=== PATIENT | male | born 1970 | race Two or more races ===

== ENCOUNTER 2020-07-08 09:52 | Emergency (ER) | payer MEDICAID ==
[~2020-07-08] VITALS: Ht 193 cm; Wt 272.2 kg
[~2020-07-08 09:52] MED LIST: ASPI81CH43 PO; CLIN300C8 PO; FURO1TAB33 PO; [UNRECOGNIZED DRUG - CODE] PO
[2020-07-08 10:35] LABS: Basophils # (auto) 0.1 10 ^3/uL (0-0.2); Basophils % (auto) 1.4 % (0.0-2.0); Eosinophils # (auto) 0.3 10 ^3/uL (0-0.8); Eosinophils % (auto) 6.3 % (0.0-7.0); Hematocrit 40.1 % (41.0-53.0); Hemoglobin 12.9 g/dL (13.5-17.5); Lymphocytes # (auto) 0.8 10 ^3/uL (0.4-5.4); Lymphocytes % (auto) 16.7 % (10.0-50.0); Mean Corpuscular Hemoglobin 30.9 pg (28.0-32.0); Mean Corpuscular Hgb Conc. 32.1 g/dL (32.0-36.0); Mean Corpuscular Volume 96.1 fL (80.0-100.0); Monocytes # (auto) 0.4 10 ^3/uL (0-1.3); Monocytes % (auto) 7.5 % (0.0-12.0); Neutrophils # (auto) 3.2 10 ^3/uL (1.6-8.6); Neutrophils % (auto) 68.1 % (37.0-80.0); Nucleated Red Blood Cells % 0.1 %; Platelet Count (auto) 197 10^3/uL (140-450); Red Blood Cells 4.17 10^6/uL (4.5-5.90); Red Cell Distribution Width 17.2 % (11.8-14.3); White Blood Cell 4.7 10^3/uL (4.4-10.8)
[2020-07-08 10:59] LABS: Albumin 3.2 g/dL (3.4-5.0); Anion Gap 5 (5-15); Blood Urea Nitrogen 8 mg/dL (7-18); Calcium 7.6 mg/dL (8.5-10.1); Carbon Dioxide 28 mmol/L (21-32); Chloride 107 mmol/L (98-107); Glucose 92 mg/dL (74-106); INR 1.1 (0.9-1.15); Magnesium 2.2 mg/dL (1.6-2.6); Partial Thromboplastin Time 26.2 sec (23.0-31.2); Sodium 140 mmol/L (136-145)
[2020-07-08 11:05] LABS: Alanine Aminotransferase 15 U/L (16-61); Alkaline Phosphatase 70 U/L (45-117); Aspartate Aminotransferase 15 U/L (15-37); BUN/Creatinine Ratio 9.4; Bilirubin, Total 1.2 mg/dL (0.2-1.0); GFR African American 123 mL/min; GFR Non-African American 101 mL/min; Total Protein 7.2 g/dL (6.4-8.2)
[2020-07-08 12:42] VITALS: BP 136/63
== END 2020-07-08 12:54 | disposition home or self-care (01) ==
LOC: EDBD 09:52 → ER 09:52
DX: I11.0 Hypertensive heart disease with heart failure (principal); I50.9 Heart failure, unspecified; M79.89 Other specified soft tissue disorders; I89.0 Lymphedema, not elsewhere classified; F17.210 Nicotine dependence, cigarettes, uncomplicated
CPT/HCPCS: 36415; 71045; 80053; 83735; 83880; 84484; 85025; 85610; 85730; 93005; 93970

== ENCOUNTER 2020-11-24 12:47 | Inpatient (IN) | payer MEDICAID ==
[~2020-11-24] VITALS: Ht 193 cm; Wt 256.8 kg
[2020-11-24] MEDS ORDERED: CEFEPIME 2 GM in SODIUM CHL 0.9% 50 ML IV ONE (17:45)
[2020-11-24 22:20] LABS: Basophils # (auto) 0 10 ^3/uL (0-0.2); Eosinophils # (auto) 0.1 10 ^3/uL (0-0.8); Eosinophils % (auto) 2.8 % (0.0-7.0); Hematocrit 38.8 % (41.0-53.0); Lymphocytes # (auto) 0.5 10 ^3/uL (0.4-5.4); Monocytes # (auto) 0.3 10 ^3/uL (0-1.3); Red Blood Cells 3.71 10^6/uL (4.5-5.90); Red Cell Distribution Width 18.1 % (11.8-14.3); White Blood Cell 3.4 10^3/uL (4.4-10.8)
[2020-11-24 22:22] LABS: Basophils % (auto) 0.9 % (0.0-2.0); Hemoglobin 13.5 g/dL (13.5-17.5); Mean Corpuscular Hemoglobin 36.3 pg (28.0-32.0); Mean Corpuscular Hgb Conc. 34.7 g/dL (32.0-36.0); Mean Corpuscular Volume 104.4 fL (80.0-100.0); Monocytes % (auto) 7.5 % (0.0-12.0); Neutrophils # (auto) 2.5 10 ^3/uL (1.6-8.6); Neutrophils % (auto) 73.8 % (37.0-80.0); Platelet Count (auto) 187 10^3/uL (140-450)
[2020-11-24 22:46] LABS: Albumin 2.9 g/dL (3.4-5.0); Anion Gap 7 (5-15); Blood Urea Nitrogen 9 mg/dL (7-18); Calcium 7.6 mg/dL (8.5-10.1); Carbon Dioxide 28 mmol/L (21-32); Chloride 104 mmol/L (98-107); Glucose 81 mg/dL (74-106); Magnesium 1.9 mg/dL (1.6-2.6); Sodium 139 mmol/L (136-145)
[2020-11-24 22:52] LABS: Alanine Aminotransferase 16 U/L (16-61); Alkaline Phosphatase 77 U/L (45-117); Aspartate Aminotransferase 21 U/L (15-37); BUN/Creatinine Ratio 12.3; Bilirubin, Total 1.4 mg/dL (0.2-1.0); GFR African American 146 mL/min; GFR Non-African American 121 mL/min; Total Protein 8.1 g/dL (6.4-8.2)
[2020-11-25] MEDS ORDERED: NITROGLYCERIN 0.4 MG SL TAB SL PRN (06:00)
[2020-11-25] MEDS ORDERED: MORPHINE SULF INJ 2 MG/ML SYRINGE 1ML IV PRN ×2 (06:00)
[2020-11-25] MEDS ORDERED: VANCOMYCIN PER PHARMACY 0 MG IV SCH (06:00)
[2020-11-25] MEDS ORDERED: VANCOMYCIN 1GM/250ML 250 ML IV ONE (09:00)
[2020-11-25] MEDS: ONDANSETRON HCL 4 MG/2 ML VIAL IV PRN ×2 (09:09→10:24)
[2020-11-25] MEDS: FUROSEMIDE 40 MG/4 ML VIAL IV SCH (10:24)
[2020-11-25] MEDS: PIPERACILLIN-TAZOB 3.375GM 100 ML IV SCH ×2 (13:00→17:41)
[2020-11-25] MEDS: HYDROcodone-ACET 5/325MG TAB PO PRN (17:45)
[2020-11-25] MEDS: Ensure HIGH Protein Chocolate 8oz Bottle PO SCH (19:00)
[2020-11-25] MEDS: MORPHINE SULFATE 4 MG/ML SYR/VIAL IV PRN (20:37)
[2020-11-25] MEDS: CLINDAMYCIN 600MG IV 50 ML IV SCH (21:34)
[2020-11-26] MEDS: PIPERACILLIN-TAZOB 3.375GM 100 ML IV SCH ×4 (00:02→18:07)
[2020-11-26] MEDS: HYDROcodone-ACET 5/325MG TAB PO PRN (00:18)
[2020-11-26 05:06] LABS: Urine Bacteria FEW /hpf (None Seen); Urine Blood Negative /uL (Negative); Urine Mucus FEW (None Seen); Urine WBC 6 /hpf (0 - 3)
[2020-11-26 05:30] VITALS: BP 115/65
[2020-11-26 05:53] LABS: Eosinophils # (auto) 0.2 10 ^3/uL (0-0.8); Eosinophils % (auto) 2.9 % (0.0-7.0); Lymphocytes # (auto) 0.6 10 ^3/uL (0.4-5.4); Lymphocytes % (auto) 10.9 % (10.0-50.0); Monocytes # (auto) 0.4 10 ^3/uL (0-1.3); Neutrophils # (auto) 4.2 10 ^3/uL (1.6-8.6)
[2020-11-26 05:58] LABS: Basophils # (auto) 0 10 ^3/uL (0-0.2); Basophils % (auto) 0.7 % (0.0-2.0); Hematocrit 35.3 % (41.0-53.0); Mean Corpuscular Hemoglobin 35.4 pg (28.0-32.0); Mean Corpuscular Volume 104.1 fL (80.0-100.0); Monocytes % (auto) 6.8 % (0.0-12.0); Neutrophils % (auto) 78.7 % (37.0-80.0); Platelet Count (auto) 194 10^3/uL (140-450); Red Blood Cells 3.39 10^6/uL (4.5-5.90); Red Cell Distribution Width 18.2 % (11.8-14.3); White Blood Cell 5.3 10^3/uL (4.4-10.8)
[2020-11-26 06:14] LABS: Calcium 7.7 mg/dL (8.5-10.1); Chloride 103 mmol/L (98-107); Potassium 3.9 mmol/L (3.5-5.1); Sodium 137 mmol/L (136-145)
[2020-11-26 06:24] LABS: Alanine Aminotransferase 14 U/L (16-61); Albumin 2.6 g/dL (3.4-5.0); Alkaline Phosphatase 60 U/L (45-117); Anion Gap 6 (5-15); Aspartate Aminotransferase 18 U/L (15-37); BUN/Creatinine Ratio 15.8; Bilirubin, Total 1.3 mg/dL (0.2-1.0); Blood Urea Nitrogen 12 mg/dL (7-18); CRP High Sensitivity 2.63 mg/dL (< 0.3); Carbon Dioxide 28 mmol/L (21-32); GFR African American 140 mL/min; GFR Non-African American 115 mL/min; Glucose 96 mg/dL (74-106); Total Protein 7.2 g/dL (6.4-8.2)
[2020-11-26] MEDS: CLINDAMYCIN 600MG IV 50 ML IV SCH ×2 (06:30→14:19)
[2020-11-26] MEDS: MORPHINE SULFATE 4 MG/ML SYR/VIAL IV PRN ×3 (06:40→12:09)
[2020-11-26] MEDS: Ensure HIGH Protein Chocolate 8oz Bottle PO SCH ×3 (08:00→18:00)
[2020-11-26] MEDS: FUROSEMIDE 40 MG/4 ML VIAL IV SCH ×2 (10:13→22:31)
[2020-11-26] MEDS ORDERED: CARVEDILOL 3.125 MG TAB PO ONE (11:30)
[2020-11-26] MEDS: ONDANSETRON HCL 4 MG/2 ML VIAL IV PRN (12:09)
[2020-11-26] MEDS ORDERED: OPTISON 3ml Vial for INJ IV ONE (13:04)
[2020-11-26] MEDS ORDERED: GABAPENTIN 300 MG CAP ONE (15:48)
[2020-11-26] MEDS ORDERED: GABAPENTIN 300 MG CAP PO ONE (16:00)
[2020-11-26] MEDS ORDERED: VANCOMYCIN PER PHARMACY 0 MG IV SCH (18:00)
[2020-11-26] MEDS: VANCOMYCIN 1GM/250ML 250 ML IV SCH ×2 (18:56→22:33)
[2020-11-26] MEDS ORDERED: VANCOMYCIN 1GM/250ML 250 ML IV SCH (19:00)
[2020-11-26 19:03] LABS: Cholesterol 85 mg/dL (< 200); HDL Cholesterol 29 mg/dL (40-59); LDL Cholesterol 51 mg/dL (< 100); Triglycerides 63 mg/dL (< 150)
[2020-11-26] MEDS: GABAPENTIN 300 MG CAP PO SCH ×2 (21:08→22:32)
[2020-11-26] MEDS ORDERED: GABAPENTIN 100 MG CAP PO SCH (22:00)
[2020-11-26] MEDS: FAMOTIDINE 20 MG TAB PO SCH (22:00)
[2020-11-26] MEDS: CARVEDILOL 3.125 MG TAB PO SCH (22:31)
[2020-11-26] MEDS: ATORVASTATIN 20 MG TAB PO SCH (22:32)
[2020-11-27] VITALS (7 sets, daily range): BP systolic 97–136; BP diastolic 57–76
[2020-11-27] MEDS: HYDROcodone-ACET 5/325MG TAB PO PRN ×3 (01:08→20:19)
[2020-11-27] MEDS ORDERED: INFLUENZA QUAD 2020-2021 0.5 ML SYRG IM ONE (03:00)
[2020-11-27] MEDS: ACETAMINOPHEN 325 MG TAB PO PRN ×2 (03:51→20:12)
[2020-11-27] MEDS: GABAPENTIN 300 MG CAP PO SCH ×6 (05:45→21:40)
[2020-11-27] MEDS: LEVOTHYROXINE SODIUM 112 MCG TAB PO SCH (06:33)
[2020-11-27] MEDS ORDERED: VANCOMYCIN 1GM/250ML 250 ML IV SCH (07:00)
[2020-11-27] MEDS: Ensure HIGH Protein Chocolate 8oz Bottle PO SCH ×3 (08:00→18:01)
[2020-11-27 09:42] LABS: Hematocrit 35.5 % (41.0-53.0); Hemoglobin 12.1 g/dL (13.5-17.5); Mean Corpuscular Hemoglobin 35.5 pg (28.0-32.0); Neutrophils # (auto) 4.1 10 ^3/uL (1.6-8.6); Nucleated Red Blood Cells % 0.1 %
[2020-11-27 09:46] LABS: Basophils # (auto) 0.1 10 ^3/uL (0-0.2); Basophils % (auto) 1.2 % (0.0-2.0); Eosinophils # (auto) 0.2 10 ^3/uL (0-0.8); Eosinophils % (auto) 4.4 % (0.0-7.0); Lymphocytes # (auto) 0.7 10 ^3/uL (0.4-5.4); Lymphocytes % (auto) 12.6 % (10.0-50.0); Mean Corpuscular Hgb Conc. 34.1 g/dL (32.0-36.0); Mean Corpuscular Volume 104.4 fL (80.0-100.0); Monocytes # (auto) 0.5 10 ^3/uL (0-1.3); Monocytes % (auto) 8.6 % (0.0-12.0); Neutrophils % (auto) 73.2 % (37.0-80.0); Platelet Count (auto) 202 10^3/uL (140-450); Red Cell Distribution Width 18.6 % (11.8-14.3); White Blood Cell 5.6 10^3/uL (4.4-10.8)
[2020-11-27] MEDS: ASPirin 81 mg TAB PO SCH (10:15)
[2020-11-27] MEDS: FAMOTIDINE 20 MG TAB PO SCH ×2 (10:16→21:41)
[2020-11-27] MEDS: LISINOPRIL 5 MG TAB PO SCH (10:17)
[2020-11-27] MEDS: POTASSIUM CHL 20 Meq TABLET PO SCH (10:17)
[2020-11-27] MEDS: CARVEDILOL 3.125 MG TAB PO SCH ×2 (10:17→21:40)
[2020-11-27] MEDS: FUROSEMIDE 40 MG/4 ML VIAL IV SCH ×2 (10:18→18:23)
[2020-11-27 11:04] LABS: Albumin 2.8 g/dL (3.4-5.0); Calcium 7.9 mg/dL (8.5-10.1); Potassium 3.9 mmol/L (3.5-5.1)
[2020-11-27 11:06] LABS: BUN/Creatinine Ratio 15.2
[2020-11-27] MEDS: PIPERACILLIN-TAZOB 3.375GM 100 ML IV SCH ×3 (12:52→18:01)
[2020-11-27] MEDS: VANCOMYCIN 1GM/250ML 250 ML IV SCH ×2 (15:32→23:21)
[2020-11-27] MEDS ORDERED: CIPROFLOXACIN 0.3%OPTH(EYE) SOL 5ML EACHEYE ONE (16:30)
[2020-11-27] MEDS: CIPROFLOXACIN 0.3%OPTH(EYE) SOL 5ML EACHEYE SCH ×3 (18:23→22:25)
[2020-11-27] MEDS: ATORVASTATIN 20 MG TAB PO SCH (21:40)
[2020-11-27] MEDS: ENOXAPARIN SOD 40 MG/0.4 ML SYRINGE SC SCH (21:41)
[2020-11-27] MEDS: NEOMYCIN-POLYMY-DEXAMETH 0.1% OPTH(EYE) OINT 3.5GM EACHEYE SCH (22:00)
[2020-11-28] MEDS: PIPERACILLIN-TAZOB 3.375GM 100 ML IV SCH ×4 (00:23→18:12)
[2020-11-28] MEDS: CIPROFLOXACIN 0.3%OPTH(EYE) SOL 5ML EACHEYE SCH ×12 (00:23→22:01)
[2020-11-28] MEDS: MORPHINE SULFATE 4 MG/ML SYR/VIAL IV PRN ×2 (00:24→21:13)
[2020-11-28] MEDS: GABAPENTIN 300 MG CAP PO SCH ×8 (00:46→23:30)
[2020-11-28] MEDS: ACETAMINOPHEN 325 MG TAB PO PRN ×4 (04:31→23:30)
[2020-11-28 05:30] VITALS: BP 101/72
[2020-11-28] MEDS: FUROSEMIDE 40 MG/4 ML VIAL IV SCH ×2 (05:36→18:19)
[2020-11-28] MEDS: LEVOTHYROXINE SODIUM 112 MCG TAB PO SCH (06:57)
[2020-11-28] MEDS: VANCOMYCIN 1GM/250ML 250 ML IV SCH ×3 (06:57→22:57)
[2020-11-28 07:53] LABS: Potassium 3.8 mmol/L (3.5-5.1)
[2020-11-28 07:54] LABS: Basophils # (auto) 0.1 10 ^3/uL (0-0.2); Basophils % (auto) 1.3 % (0.0-2.0); Eosinophils # (auto) 0.2 10 ^3/uL (0-0.8); Mean Corpuscular Volume 104.2 fL (80.0-100.0); Monocytes # (auto) 0.4 10 ^3/uL (0-1.3); Nucleated Red Blood Cells % 0.2 %; Red Cell Distribution Width 18.1 % (11.8-14.3)
[2020-11-28 07:57] LABS: Eosinophils % (auto) 5.7 % (0.0-7.0); Hematocrit 35.6 % (41.0-53.0); Lymphocytes % (auto) 22.3 % (10.0-50.0); Mean Corpuscular Hemoglobin 35.1 pg (28.0-32.0); Mean Corpuscular Hgb Conc. 33.7 g/dL (32.0-36.0); Monocytes % (auto) 10.1 % (0.0-12.0); Neutrophils # (auto) 2.6 10 ^3/uL (1.6-8.6); Neutrophils % (auto) 60.6 % (37.0-80.0); Platelet Count (auto) 211 10^3/uL (140-450); Red Blood Cells 3.42 10^6/uL (4.5-5.90); White Blood Cell 4.3 10^3/uL (4.4-10.8)
[2020-11-28 08:15] LABS: Albumin 2.7 g/dL (3.4-5.0); Calcium 8.2 mg/dL (8.5-10.1); Phosphorus 4.2 mg/dL (2.5-4.90)
[2020-11-28] MEDS: Ensure HIGH Protein Chocolate 8oz Bottle PO SCH ×3 (08:28→18:12)
[2020-11-28 08:30] VITALS: BP 111/59
[2020-11-28 09:00] VITALS: BP 111/59
[2020-11-28] MEDS: POTASSIUM CHL 20 Meq TABLET PO SCH (10:26)
[2020-11-28] MEDS: CARVEDILOL 3.125 MG TAB PO SCH ×2 (10:27→22:01)
[2020-11-28] MEDS: FAMOTIDINE 20 MG TAB PO SCH ×2 (10:27→21:11)
[2020-11-28] MEDS: ASPirin 81 mg TAB PO SCH (10:27)
[2020-11-28] MEDS: LISINOPRIL 5 MG TAB PO SCH (10:28)
[2020-11-28] MEDS: ENOXAPARIN SOD 40 MG/0.4 ML SYRINGE SC SCH ×2 (10:28→21:12)
[2020-11-28] MEDS: HYDROcodone-ACET 5/325MG TAB PO PRN (10:48)
[2020-11-28 13:00] VITALS: BP 107/59
[2020-11-28 17:00] VITALS: BP 111/66
[2020-11-28] MEDS: ATORVASTATIN 20 MG TAB PO SCH (21:11)
[2020-11-28] MEDS: NEOMYCIN-POLYMY-DEXAMETH 0.1% OPTH(EYE) OINT 3.5GM EACHEYE SCH (21:12)
[2020-11-29] MEDS: CIPROFLOXACIN 0.3%OPTH(EYE) SOL 5ML EACHEYE SCH ×8 (00:04→21:44)
[2020-11-29] MEDS: PIPERACILLIN-TAZOB 3.375GM 100 ML IV SCH ×4 (00:05→18:35)
[2020-11-29] MEDS: MORPHINE SULFATE 4 MG/ML SYR/VIAL IV PRN ×5 (01:28→20:29)
[2020-11-29 01:51] VITALS: BP 114/69
[2020-11-29] MEDS: GABAPENTIN 300 MG CAP PO SCH ×4 (05:20→18:35)
[2020-11-29] MEDS: FUROSEMIDE 40 MG/4 ML VIAL IV SCH ×2 (05:32→18:35)
[2020-11-29 06:02] VITALS: BP 135/75
[2020-11-29 06:06] VITALS: BP 115/69
[2020-11-29] MEDS: LEVOTHYROXINE SODIUM 112 MCG TAB PO SCH (06:42)
[2020-11-29] MEDS: VANCOMYCIN 1GM/250ML 250 ML IV SCH ×3 (07:02→23:00)
[2020-11-29] MEDS: Ensure HIGH Protein Chocolate 8oz Bottle PO SCH ×3 (08:00→18:35)
[2020-11-29 09:00] VITALS: BP 122/77
[2020-11-29] MEDS: ASPirin 81 mg TAB PO SCH (09:22)
[2020-11-29] MEDS: POTASSIUM CHL 20 Meq TABLET PO SCH (09:22)
[2020-11-29] MEDS: LISINOPRIL 5 MG TAB PO SCH (09:24)
[2020-11-29] MEDS: FAMOTIDINE 20 MG TAB PO SCH ×2 (09:24→21:57)
[2020-11-29] MEDS: CARVEDILOL 3.125 MG TAB PO SCH ×2 (09:24→21:56)
[2020-11-29] MEDS: ENOXAPARIN SOD 40 MG/0.4 ML SYRINGE SC SCH ×2 (09:25→21:57)
[2020-11-29 16:00] VITALS: BP 127/72
[2020-11-29] MEDS: NEOMYCIN-POLYMY-DEXAMETH 0.1% OPTH(EYE) OINT 3.5GM EACHEYE SCH (21:52)
[2020-11-29] MEDS: ATORVASTATIN 20 MG TAB PO SCH (21:56)
[2020-11-30] VITALS: BP 120/67
[2020-11-30] MEDS: MORPHINE SULFATE 4 MG/ML SYR/VIAL IV PRN ×4 (00:21→20:34)
[2020-11-30] MEDS: GABAPENTIN 300 MG CAP PO SCH ×4 (00:28→18:16)
[2020-11-30] MEDS: PIPERACILLIN-TAZOB 3.375GM 100 ML IV SCH ×4 (00:28→18:15)
[2020-11-30] MEDS: CIPROFLOXACIN 0.3%OPTH(EYE) SOL 5ML EACHEYE SCH ×6 (02:05→22:02)
[2020-11-30 05:00] VITALS: BP 131/65
[2020-11-30] MEDS: FUROSEMIDE 40 MG/4 ML VIAL IV SCH ×2 (06:09→18:16)
[2020-11-30] MEDS: LEVOTHYROXINE SODIUM 112 MCG TAB PO SCH (06:13)
[2020-11-30] MEDS: VANCOMYCIN 1GM/250ML 250 ML IV SCH ×3 (06:14→22:14)
[2020-11-30 08:00] VITALS: BP 108/73
[2020-11-30] MEDS: Ensure HIGH Protein Chocolate 8oz Bottle PO SCH ×3 (08:00→18:16)
[2020-11-30] MEDS: POTASSIUM CHL 20 Meq TABLET PO SCH (10:00)
[2020-11-30] MEDS: ENOXAPARIN SOD 40 MG/0.4 ML SYRINGE SC SCH ×2 (10:00→22:13)
[2020-11-30] MEDS: FAMOTIDINE 20 MG TAB PO SCH ×2 (10:00→22:15)
[2020-11-30] MEDS: ASPirin 81 mg TAB PO SCH (10:00)
[2020-11-30] MEDS: CARVEDILOL 3.125 MG TAB PO SCH ×2 (10:00→22:11)
[2020-11-30] MEDS: ACETAMINOPHEN 325 MG TAB PO PRN (15:46)
[2020-11-30 16:19] VITALS: BP 131/84
[2020-11-30] MEDS: LISINOPRIL 5 MG TAB PO SCH (16:42)
[2020-11-30 21:40] VITALS: BP 127/60
[2020-11-30] MEDS: NEOMYCIN-POLYMY-DEXAMETH 0.1% OPTH(EYE) OINT 3.5GM EACHEYE SCH (22:00)
[2020-11-30] MEDS: ATORVASTATIN 20 MG TAB PO SCH (22:12)
[2020-11-30] MEDS: HYDROcodone-ACET 5/325MG TAB PO PRN (22:30)
[2020-12-01] MEDS: PIPERACILLIN-TAZOB 3.375GM 100 ML IV SCH ×5 (00:30→23:03)
[2020-12-01] MEDS: GABAPENTIN 300 MG CAP PO SCH ×5 (00:31→23:03)
[2020-12-01] MEDS: MORPHINE SULFATE 4 MG/ML SYR/VIAL IV PRN ×5 (00:32→21:35)
[2020-12-01] MEDS: CIPROFLOXACIN 0.3%OPTH(EYE) SOL 5ML EACHEYE SCH ×6 (01:57→21:33)
[2020-12-01 04:57] VITALS: BP 144/76
[2020-12-01] MEDS: FUROSEMIDE 40 MG/4 ML VIAL IV SCH ×2 (05:32→17:32)
[2020-12-01] MEDS: LEVOTHYROXINE SODIUM 112 MCG TAB PO SCH (06:59)
[2020-12-01] MEDS: VANCOMYCIN 1GM/250ML 250 ML IV SCH ×2 (07:49→16:45)
[2020-12-01 08:00] VITALS: BP 117/81
[2020-12-01] MEDS: Ensure HIGH Protein Chocolate 8oz Bottle PO SCH ×3 (08:00→17:32)
[2020-12-01] MEDS: HYDROcodone-ACET 5/325MG TAB PO PRN ×2 (08:39→20:02)
[2020-12-01] MEDS: ASPirin 81 mg TAB PO SCH (11:18)
[2020-12-01] MEDS: ENOXAPARIN SOD 40 MG/0.4 ML SYRINGE SC SCH ×2 (11:18→21:35)
[2020-12-01] MEDS: FAMOTIDINE 20 MG TAB PO SCH ×2 (11:18→21:34)
[2020-12-01] MEDS: CARVEDILOL 3.125 MG TAB PO SCH ×2 (11:19→21:36)
[2020-12-01] MEDS: LISINOPRIL 5 MG TAB PO SCH (11:19)
[2020-12-01] MEDS: POTASSIUM CHL 20 Meq TABLET PO SCH (11:19)
[2020-12-01 16:00] VITALS: BP 125/60
[2020-12-01 16:09] LABS: Potassium 4.4 mmol/L (3.5-5.1)
[2020-12-01 16:44] LABS: BUN/Creatinine Ratio 15.6; Calcium 8.6 mg/dL (8.5-10.1)
[2020-12-01 20:00] VITALS: BP 116/72
[2020-12-01] MEDS: NEOMYCIN-POLYMY-DEXAMETH 0.1% OPTH(EYE) OINT 3.5GM EACHEYE SCH (21:34)
[2020-12-01] MEDS: ATORVASTATIN 20 MG TAB PO SCH (21:34)
[2020-12-01 22:00] VITALS: BP 114/72
[2020-12-02] MEDS: HYDROcodone-ACET 5/325MG TAB PO PRN ×4 (00:07→19:35)
[2020-12-02] MEDS: CIPROFLOXACIN 0.3%OPTH(EYE) SOL 5ML EACHEYE SCH ×6 (01:25→21:30)
[2020-12-02] MEDS: MORPHINE SULFATE 4 MG/ML SYR/VIAL IV PRN ×3 (01:30→21:34)
[2020-12-02] MEDS: VANCOMYCIN 1GM/250ML 250 ML IV SCH ×2 (04:13→17:52)
[2020-12-02] MEDS: GABAPENTIN 300 MG CAP PO SCH ×4 (04:57→23:29)
[2020-12-02] MEDS: PIPERACILLIN-TAZOB 3.375GM 100 ML IV SCH ×4 (04:57→23:29)
[2020-12-02 05:00] VITALS: BP 108/81
[2020-12-02] MEDS: FUROSEMIDE 40 MG/4 ML VIAL IV SCH ×2 (05:27→17:53)
[2020-12-02] MEDS: LEVOTHYROXINE SODIUM 112 MCG TAB PO SCH (05:27)
[2020-12-02] MEDS ORDERED: ceFAZolin 1GM/50ML 100 ML IV ONE (07:17)
[2020-12-02] MEDS ORDERED: ceFAZolin 1GM VL ONE (07:27)
[2020-12-02] MEDS ORDERED: LIDOCAINE 1% (LOCAL ANESTH.) PF 5ml SDV ONE (07:39)
[2020-12-02] MEDS ORDERED: SUCCINYLCHOLINE CHLORIDE 20 MG/ML 10ML VIAL IV ONE (07:39)
[2020-12-02] MEDS ORDERED: METOCLOPRAMIDE HCL 5MG/ml INJ 2ml VIAL ONE (07:51)
[2020-12-02] MEDS ORDERED: MIDAZOLAM HCL 1MG/1ML-2 ML VIAL ONE ×2 (07:51→08:08)
[2020-12-02] MEDS ORDERED: diphenhdrAMINE HCL 50 MG/1 ML VL ONE (07:51)
[2020-12-02] MEDS ORDERED: SILVER SULFADIAZINE 1 % TOPICAL CREAM 50GM TOP ONE (08:17)
[2020-12-02] MEDS ORDERED: HYDROmorphone HCL 2 MG/ML VL IV PRN (08:30)
[2020-12-02] MEDS ORDERED: ONDANSETRON HCL 4 MG/2 ML VIAL IV PRN (08:30)
[2020-12-02] MEDS ORDERED: NALOXONE HCL 0.4 MG/ML VIAL IV PRN (08:30)
[2020-12-02] MEDS: Ensure HIGH Protein Chocolate 8oz Bottle PO SCH ×3 (09:57→18:16)
[2020-12-02] MEDS: CARVEDILOL 3.125 MG TAB PO SCH ×2 (10:00→21:57)
[2020-12-02] MEDS: ASPirin 81 mg TAB PO SCH (10:00)
[2020-12-02] MEDS: POTASSIUM CHL 20 Meq TABLET PO SCH (10:03)
[2020-12-02] MEDS: FAMOTIDINE 20 MG TAB PO SCH ×2 (10:03→21:33)
[2020-12-02] MEDS: LISINOPRIL 5 MG TAB PO SCH (10:04)
[2020-12-02] MEDS: ENOXAPARIN SOD 40 MG/0.4 ML SYRINGE SC SCH ×2 (10:04→21:33)
[2020-12-02 12:00] VITALS: BP 126/77
[2020-12-02 17:00] VITALS: BP 104/69
[2020-12-02] MEDS: ATORVASTATIN 20 MG TAB PO SCH (21:30)
[2020-12-02] MEDS: NEOMYCIN-POLYMY-DEXAMETH 0.1% OPTH(EYE) OINT 3.5GM EACHEYE SCH (21:30)
[2020-12-02 22:00] VITALS: BP 127/63
[2020-12-03] MEDS: MORPHINE SULFATE 4 MG/ML SYR/VIAL IV PRN ×4 (01:54→16:57)
[2020-12-03] MEDS: HYDROcodone-ACET 5/325MG TAB PO PRN ×2 (02:43→09:59)
[2020-12-03 05:00] VITALS: BP 135/85
[2020-12-03] MEDS: VANCOMYCIN 1GM/250ML 250 ML IV SCH ×2 (05:13→17:00)
[2020-12-03] MEDS: CIPROFLOXACIN 0.3%OPTH(EYE) SOL 5ML EACHEYE SCH ×4 (05:13→17:32)
[2020-12-03] MEDS: GABAPENTIN 300 MG CAP PO SCH ×2 (05:14→11:57)
[2020-12-03] MEDS: LEVOTHYROXINE SODIUM 112 MCG TAB PO SCH (05:15)
[2020-12-03] MEDS: FUROSEMIDE 40 MG/4 ML VIAL IV SCH (05:22)
[2020-12-03] MEDS: PIPERACILLIN-TAZOB 3.375GM 100 ML IV SCH ×2 (06:11→11:57)
[2020-12-03 08:00] VITALS: BP 115/61
[2020-12-03 08:18] LABS: Potassium 4.2 mmol/L (3.5-5.1)
[2020-12-03 08:29] LABS: BUN/Creatinine Ratio 17.3; Calcium 8.4 mg/dL (8.5-10.1)
[2020-12-03] MEDS: ASPirin 81 mg TAB PO SCH (09:47)
[2020-12-03] MEDS: POTASSIUM CHL 20 Meq TABLET PO SCH (09:48)
[2020-12-03] MEDS: CARVEDILOL 3.125 MG TAB PO SCH (09:48)
[2020-12-03] MEDS: ENOXAPARIN SOD 40 MG/0.4 ML SYRINGE SC SCH (09:49)
[2020-12-03] MEDS: LISINOPRIL 5 MG TAB PO SCH (09:49)
[2020-12-03] MEDS: Ensure HIGH Protein Chocolate 8oz Bottle PO SCH ×2 (09:50→17:32)
[2020-12-03] MEDS: FAMOTIDINE 20 MG TAB PO SCH (10:00)
[2020-12-03 16:22] VITALS: BP 130/80
== END 2020-12-03 17:24 | disposition home health service (06) | DRG 720 ==
LOC: EDBD 12:47 → ER 12:47 → TELE 12:48 → TELE-CENTR 11-26 23:44
PROVIDERS: ADMIT Internal Medicine; ATTEND Family Medicine
PROC: 0JBN0ZZ Excision of Right Lower Leg Subcutaneous Tissue and Fascia, Open Approach (ICD-10-PCS; principal; 2020-12-02 07:50)
DX: A41.9 Sepsis, unspecified organism (principal); I50.23 Acute on chronic systolic (congestive) heart failure; E44.0 Moderate protein-calorie malnutrition; L97.912 Non-pressure chronic ulcer of unspecified part of right lower leg with fat layer exposed; I27.20 Pulmonary hypertension, unspecified; Z68.44 Body mass index [BMI] 60.0-69.9, adult; E66.01 Morbid (severe) obesity due to excess calories; L97.919 Non-pressure chronic ulcer of unspecified part of right lower leg with unspecified severity; I11.0 Hypertensive heart disease with heart failure; E11.9 Type 2 diabetes mellitus without complications; E83.51 Hypocalcemia; H10.9 Unspecified conjunctivitis; L03.115 Cellulitis of right lower limb; I45.10 Unspecified right bundle-branch block; F17.210 Nicotine dependence, cigarettes, uncomplicated; E78.5 Hyperlipidemia, unspecified; Z20.822 Contact with and (suspected) exposure to COVID-19; L03.116 Cellulitis of left lower limb; I89.0 Lymphedema, not elsewhere classified; E07.9 Disorder of thyroid, unspecified; Z82.49 Family history of ischemic heart disease and other diseases of the circulatory system; Z83.3 Family history of diabetes mellitus
CPT/HCPCS: 36415; 71045; 73590; 80048; 80053; 80061; 80069; 80202; 81001; 82962; 83036; 83605; 83735; 83880; 84443; 84484; 85025; 85652; 86141; 87040; 87070; 87075; 87205; 87426; 93005; 93306; 96365; G0378; J0330; J0690; J2250; J2405; J2543; J3490; Q9956

== ENCOUNTER 2020-12-15 15:55 | Inpatient (IN) | payer MEDICAID ==
[~2020-12-15] VITALS: Ht 190.5 cm; Wt 218.2 kg
[2020-12-15 16:52] LABS: Eosinophils # (auto) 0 10 ^3/uL (0-0.8); Eosinophils % (auto) 0.1 % (0.0-7.0); Lymphocytes # (auto) 0.7 10 ^3/uL (0.4-5.4); White Blood Cell 5.4 10^3/uL (4.4-10.8)
[2020-12-15 16:54] LABS: Basophils # (auto) 0 10 ^3/uL (0-0.2); Basophils % (auto) 0.5 % (0.0-2.0); Hematocrit 40.1 % (41.0-53.0); Hemoglobin 13.8 g/dL (13.5-17.5); Lymphocytes % (auto) 12.1 % (10.0-50.0); Mean Corpuscular Hemoglobin 34.4 pg (28.0-32.0); Mean Corpuscular Hgb Conc. 34.4 g/dL (32.0-36.0); Monocytes # (auto) 0.5 10 ^3/uL (0-1.3); Monocytes % (auto) 8.7 % (0.0-12.0); Neutrophils # (auto) 4.3 10 ^3/uL (1.6-8.6); Neutrophils % (auto) 78.6 % (37.0-80.0); Platelet Count (auto) 201 10^3/uL (140-450); Red Blood Cells 4.01 10^6/uL (4.5-5.90); Red Cell Distribution Width 17.8 % (11.8-14.3)
[2020-12-15] MEDS ORDERED: methylPREDNISolone SOD SUCC 125 MG/2 ML VL IV ONE (17:00)
[2020-12-15] MEDS ORDERED: DOXYCYCLINE 100MG/250ML 250 ML IV ONE (17:00)
[2020-12-15] MEDS ORDERED: FUROSEMIDE 20 MG/2 ML VIAL IV ONE (17:00)
[2020-12-15 17:20] LABS: Lactic Acid w/Reflex 2.2 mmol/L (0.4-2.0)
[2020-12-15 17:23] LABS: Potassium 3.8 mmol/L (3.5-5.1)
[2020-12-15 17:34] LABS: Albumin 2.5 g/dL (3.4-5.0); BUN/Creatinine Ratio 14.5; Bilirubin, Total 0.8 mg/dL (0.2-1.0); Total Protein 8.1 g/dL (6.4-8.2)
[2020-12-15 17:36] LABS: INR 1.21 (0.9-1.15); Partial Thromboplastin Time 31.6 sec (23.0-31.2)
[2020-12-15] MEDS ORDERED: MORPHINE SULFATE 4 MG/ML SYR/VIAL IV ONE (18:00)
[2020-12-15] MEDS ORDERED: ONDANSETRON HCL 4 MG/2 ML VIAL IV ONE (18:00)
[2020-12-15] MEDS ORDERED: NITROGLYCERIN 0.4 MG SL TAB SL PRN (21:15)
[2020-12-15] MEDS ORDERED: ACETAMINOPHEN 500 MG TAB PO PRN (21:15)
[2020-12-15] MEDS ORDERED: DEXTROSE (50%) 50ML SYRG IV PRN (21:15)
[2020-12-15] MEDS ORDERED: ONDANSETRON HCL 4 MG/2 ML VIAL IV PRN (21:15)
[2020-12-15 22:42] LABS: Magnesium 1.8 mg/dL (1.6-2.6)
[2020-12-15 22:51] LABS: CRP High Sensitivity 16.7 mg/dL (< 0.3)
[2020-12-15] MEDS ORDERED: REMDESIVIR PER PHARMACY 0 ML IV SCH (23:30)
[2020-12-16] MEDS: CLINDAMYCIN 600MG IV 50 ML IV SCH ×3 (02:34→14:21)
[2020-12-16] MEDS: FAMOTIDINE 20 MG TAB PO SCH ×2 (02:35→08:23)
[2020-12-16] MEDS: ENOXAPARIN SOD 40 MG/0.4 ML SYRINGE SC SCH ×2 (02:35→08:23)
[2020-12-16] MEDS: ATORVASTATIN 20 MG TAB PO SCH (02:35)
[2020-12-16] MEDS: ACCU-CHEK COMFORT CURVE STRIP VI SCH ×4 (02:36→18:45)
[2020-12-16] MEDS: InsuLIN REG 1unit/0.01ml Soln (100units/ml) SC SCH ×4 (02:37→17:00)
[2020-12-16 06:09] LABS: Basophils # (auto) 0 10 ^3/uL (0-0.2); Eosinophils # (auto) 0 10 ^3/uL (0-0.8); Lymphocytes # (auto) 0.4 10 ^3/uL (0.4-5.4); Monocytes # (auto) 0.3 10 ^3/uL (0-1.3); Monocytes % (auto) 5.1 % (0.0-12.0); Platelet Count (auto) 196 10^3/uL (140-450); White Blood Cell 5.6 10^3/uL (4.4-10.8)
[2020-12-16 06:11] LABS: Basophils % (auto) 0.2 % (0.0-2.0); Hematocrit 40.4 % (41.0-53.0); Lymphocytes % (auto) 6.3 % (10.0-50.0); Mean Corpuscular Hemoglobin 34.4 pg (28.0-32.0); Mean Corpuscular Hgb Conc. 34.6 g/dL (32.0-36.0); Mean Corpuscular Volume 99.4 fL (80.0-100.0); Neutrophils % (auto) 88.4 % (37.0-80.0); Nucleated Red Blood Cells % 0.1 %; Red Blood Cells 4.07 10^6/uL (4.5-5.90); Red Cell Distribution Width 17.9 % (11.8-14.3)
[2020-12-16 06:34] LABS: Albumin 2.5 g/dL (3.4-5.0); Calcium 7.4 mg/dL (8.5-10.1); Potassium 4.1 mmol/L (3.5-5.1)
[2020-12-16 06:37] LABS: BUN/Creatinine Ratio 20.8; Bilirubin, Total 0.7 mg/dL (0.2-1.0); Total Protein 8.1 g/dL (6.4-8.2)
[2020-12-16] MEDS: LEVOTHYROXINE SODIUM 112 MCG TAB PO SCH (07:00)
[2020-12-16] MEDS: ZINC SULFATE 220mg CAP or TAB PO SCH (08:22)
[2020-12-16] MEDS: FUROSEMIDE 20 MG TAB PO SCH (08:22)
[2020-12-16] MEDS: ASPirin 81 mg TAB PO SCH (08:22)
[2020-12-16] MEDS: DexAMETHasone SOD PHOS 10MG/1ML VIAL INJ IV SCH (08:22)
[2020-12-16] MEDS: ASCORBIC ACID 1,000 MG TAB PO SCH (08:23)
[2020-12-16] MEDS: CHOLECALCIFEROL (VITD3) 2,000 UNIT CAP/TAB PO SCH (08:23)
[2020-12-16] MEDS: DOXYCYCLINE 100MG/250ML 250 ML IV SCH (09:23)
[2020-12-16] MEDS ORDERED: ZINC SULFATE 220mg CAP or TAB PO SCH (10:00)
[2020-12-16] MEDS: BUDESONIDE (INHALATION) 180 MCG IH IN SCH ×3 (11:20→20:20)
[2020-12-16] MEDS ORDERED: REMDESIVIR 200 MG in NS 210ml LOADING DOSE ADULT IV ONE (15:00)
[2020-12-16] MEDS ORDERED: HYDROcodone-ACET 7.5/325MG TAB PO ONE (22:15)
[2020-12-17] MEDS: DOXYCYCLINE 100MG/250ML 250 ML IV SCH ×3 (01:06→22:25)
[2020-12-17] MEDS: ATORVASTATIN 20 MG TAB PO SCH ×2 (01:06→22:25)
[2020-12-17] MEDS: FAMOTIDINE 20 MG TAB PO SCH ×3 (01:07→22:25)
[2020-12-17] MEDS: InsuLIN REG 1unit/0.01ml Soln (100units/ml) SC SCH ×5 (01:08→22:47)
[2020-12-17] MEDS: ACCU-CHEK COMFORT CURVE STRIP VI SCH ×5 (01:09→22:47)
[2020-12-17] MEDS: ENOXAPARIN SOD 40 MG/0.4 ML SYRINGE SC SCH ×3 (01:09→22:26)
[2020-12-17] MEDS: BUDESONIDE (INHALATION) 180 MCG IH IN SCH ×2 (06:15→18:03)
[2020-12-17] MEDS: CLINDAMYCIN 600MG IV 50 ML IV SCH ×5 (06:50→22:25)
[2020-12-17] MEDS: LEVOTHYROXINE SODIUM 112 MCG TAB PO SCH (06:57)
[2020-12-17 07:32] LABS: Potassium 4.5 mmol/L (3.5-5.1)
[2020-12-17 07:50] LABS: Albumin 2.2 g/dL (3.4-5.0); BUN/Creatinine Ratio 32.4; Bilirubin, Total 0.6 mg/dL (0.2-1.0); Total Protein 7.6 g/dL (6.4-8.2)
[2020-12-17] MEDS: DexAMETHasone SOD PHOS 10MG/1ML VIAL INJ IV SCH (09:31)
[2020-12-17] MEDS: ASPirin 81 mg TAB PO SCH (09:32)
[2020-12-17] MEDS: CHOLECALCIFEROL (VITD3) 2,000 UNIT CAP/TAB PO SCH (09:32)
[2020-12-17] MEDS: FUROSEMIDE 20 MG TAB PO SCH (09:32)
[2020-12-17] MEDS: ZINC SULFATE 220mg CAP or TAB PO SCH (09:33)
[2020-12-17] MEDS: ASCORBIC ACID 1,000 MG TAB PO SCH (09:34)
[2020-12-17] MEDS: MORPHINE SULF INJ 2 MG/ML SYRINGE 1ML IV PRN ×2 (11:03→19:52)
[2020-12-17 14:14] LABS: Urine Bacteria NONE SEEN /hpf (None Seen); Urine Blood Negative /uL (Negative); Urine Hyaline Cast FEW /lpf (0 - 2); Urine Mucus FEW (None Seen); Urine Specific Gravity 1.029 (1.001-1.035); Urine WBC 8 /hpf (0 - 3)
[2020-12-17] MEDS: REMDESIVIR 100mg 100 MG in SODIUM CHL 0.9% 230 ML IV SCH (15:44)
[2020-12-17] MEDS: ALBUTEROL SULF HFA 90MCG INH 200DOSE IN PRN (18:04)
[2020-12-18] MEDS: CLINDAMYCIN 600MG IV 50 ML IV SCH ×3 (05:51→21:39)
[2020-12-18] MEDS: ACCU-CHEK COMFORT CURVE STRIP VI SCH ×4 (06:49→21:35)
[2020-12-18] MEDS: LEVOTHYROXINE SODIUM 112 MCG TAB PO SCH (06:49)
[2020-12-18] MEDS: InsuLIN REG 1unit/0.01ml Soln (100units/ml) SC SCH ×4 (06:49→21:35)
[2020-12-18 07:00] LABS: Albumin 2.3 g/dL (3.4-5.0); BUN/Creatinine Ratio 32.4; Bilirubin, Total 0.7 mg/dL (0.2-1.0); Calcium 7.9 mg/dL (8.5-10.1); Total Protein 7.1 g/dL (6.4-8.2)
[2020-12-18 07:12] LABS: Potassium 4.4 mmol/L (3.5-5.1)
[2020-12-18] MEDS: BUDESONIDE (INHALATION) 180 MCG IH IN SCH ×2 (10:00→19:51)
[2020-12-18] MEDS: ASPirin 81 mg TAB PO SCH (10:16)
[2020-12-18] MEDS: DOXYCYCLINE 100MG/250ML 250 ML IV SCH ×2 (10:16→22:00)
[2020-12-18] MEDS: ZINC SULFATE 220mg CAP or TAB PO SCH (10:16)
[2020-12-18] MEDS: DexAMETHasone SOD PHOS 10MG/1ML VIAL INJ IV SCH (10:16)
[2020-12-18] MEDS: FUROSEMIDE 20 MG TAB PO SCH (10:16)
[2020-12-18] MEDS: CHOLECALCIFEROL (VITD3) 2,000 UNIT CAP/TAB PO SCH (10:17)
[2020-12-18] MEDS: ASCORBIC ACID 1,000 MG TAB PO SCH (10:17)
[2020-12-18] MEDS: ENOXAPARIN SOD 40 MG/0.4 ML SYRINGE SC SCH ×2 (10:17→21:39)
[2020-12-18] MEDS: FAMOTIDINE 20 MG TAB PO SCH ×2 (10:17→21:39)
[2020-12-18] MEDS: MORPHINE SULF INJ 2 MG/ML SYRINGE 1ML IV PRN ×3 (10:43→23:08)
[2020-12-18] MEDS: ALBUTEROL SULF HFA 90MCG INH 200DOSE IN PRN ×2 (11:03→19:51)
[2020-12-18 15:00] VITALS: BP 130/65
[2020-12-18] MEDS: REMDESIVIR 100mg 100 MG in SODIUM CHL 0.9% 230 ML IV SCH (15:00)
[2020-12-18 15:15] VITALS: BP 122/61
[2020-12-18 16:20] VITALS: BP 123/59
[2020-12-18] MEDS ORDERED: LISI-646 PO (16:40)
[2020-12-18] MEDS ORDERED: GABA100C9 PO (16:40)
[2020-12-18] MEDS ORDERED: ASPI-498 OR (16:40)
[2020-12-18] MEDS ORDERED: POTA10TA51 PO (16:40)
[2020-12-18] MEDS ORDERED: CEPH500C PO (16:40)
[2020-12-18] MEDS ORDERED: ACET-1158 PO (16:46)
[2020-12-18] MEDS ORDERED: NITR1SPR TL (16:46)
[2020-12-18] MEDS ORDERED: SULI200T4 PO (16:46)
[2020-12-18] MEDS ORDERED: LEVO112T4 PO (16:46)
[2020-12-18] MEDS ORDERED: NITR0.4S29 SL (16:47)
[2020-12-18] MEDS: ATORVASTATIN 20 MG TAB PO SCH (21:39)
[2020-12-19] VITALS: BP_SYST 104; BP_SYST 129; BP_DIAS 69; BP_DIAS 86
[2020-12-19] MEDS: CLINDAMYCIN 600MG IV 50 ML IV SCH ×2 (05:16→13:55)
[2020-12-19] MEDS: BUDESONIDE (INHALATION) 180 MCG IH IN SCH ×2 (06:20→20:30)
[2020-12-19] MEDS: InsuLIN REG 1unit/0.01ml Soln (100units/ml) SC SCH ×4 (06:26→22:00)
[2020-12-19] MEDS: ACCU-CHEK COMFORT CURVE STRIP VI SCH ×5 (06:27→23:34)
[2020-12-19] MEDS: LEVOTHYROXINE SODIUM 112 MCG TAB PO SCH (06:28)
[2020-12-19 07:55] LABS: Basophils # (auto) 0 10 ^3/uL (0-0.2); Basophils % (auto) 0.1 % (0.0-2.0); Eosinophils # (auto) 0 10 ^3/uL (0-0.8); Eosinophils % (auto) 0.7 % (0.0-7.0); Hematocrit 37.4 % (41.0-53.0); Hemoglobin 12.8 g/dL (13.5-17.5); Lymphocytes # (auto) 0.6 10 ^3/uL (0.4-5.4); Lymphocytes % (auto) 11.5 % (10.0-50.0); Mean Corpuscular Hemoglobin 33.8 pg (28.0-32.0); Mean Corpuscular Hgb Conc. 34.1 g/dL (32.0-36.0); Monocytes # (auto) 0.4 10 ^3/uL (0-1.3); Monocytes % (auto) 8.1 % (0.0-12.0); Neutrophils % (auto) 79.6 % (37.0-80.0); Nucleated Red Blood Cells % 0.1 %; Platelet Count (auto) 220 10^3/uL (140-450); Red Blood Cells 3.78 10^6/uL (4.5-5.90); Red Cell Distribution Width 17.8 % (11.8-14.3)
[2020-12-19 08:00] VITALS: BP 130/79
[2020-12-19 08:14] LABS: Potassium 3.8 mmol/L (3.5-5.1)
[2020-12-19 08:22] LABS: Albumin 2.3 g/dL (3.4-5.0); BUN/Creatinine Ratio 22.7; Bilirubin, Total 0.7 mg/dL (0.2-1.0); Calcium 7.4 mg/dL (8.5-10.1); Total Protein 6.9 g/dL (6.4-8.2)
[2020-12-19] MEDS: ASPirin 81 mg TAB PO SCH (10:07)
[2020-12-19] MEDS: DexAMETHasone SOD PHOS 10MG/1ML VIAL INJ IV SCH (10:07)
[2020-12-19] MEDS: ZINC SULFATE 220mg CAP or TAB PO SCH (10:07)
[2020-12-19] MEDS: DOXYCYCLINE 100MG/250ML 250 ML IV SCH ×2 (10:07→22:32)
[2020-12-19] MEDS: FAMOTIDINE 20 MG TAB PO SCH ×2 (10:08→22:33)
[2020-12-19] MEDS: CHOLECALCIFEROL (VITD3) 2,000 UNIT CAP/TAB PO SCH (10:08)
[2020-12-19] MEDS: ASCORBIC ACID 1,000 MG TAB PO SCH (10:08)
[2020-12-19] MEDS: FUROSEMIDE 20 MG TAB PO SCH (10:08)
[2020-12-19] MEDS: ENOXAPARIN SOD 40 MG/0.4 ML SYRINGE SC SCH (10:09)
[2020-12-19] MEDS: MORPHINE SULF INJ 2 MG/ML SYRINGE 1ML IV PRN (10:25)
[2020-12-19] MEDS: REMDESIVIR 100mg 100 MG in SODIUM CHL 0.9% 230 ML IV SCH (15:22)
[2020-12-19 16:00] VITALS: BP 146/81
[2020-12-19] MEDS: ALBUTEROL SULF HFA 90MCG INH 200DOSE IN PRN (21:26)
[2020-12-19] MEDS ORDERED: FUROSEMIDE 20 MG/2 ML VIAL IV ONE (22:00)
[2020-12-19] MEDS: ATORVASTATIN 20 MG TAB PO SCH (22:33)
[2020-12-19] MEDS: ENOXAPARIN SOD 80 MG/0.8ML SYRINGE SC SCH (22:34)
[2020-12-20] VITALS (8 sets, daily range): BP systolic 116–150; BP diastolic 67–87
[2020-12-20] MEDS ORDERED: FUROSEMIDE 20 MG/2 ML VIAL IV SCH (06:00)
[2020-12-20] MEDS: FUROSEMIDE 40 MG/4 ML VIAL IV SCH ×2 (06:11→18:00)
[2020-12-20] MEDS: LEVOTHYROXINE SODIUM 112 MCG TAB PO SCH (06:28)
[2020-12-20] MEDS: InsuLIN REG 1unit/0.01ml Soln (100units/ml) SC SCH (06:32)
[2020-12-20] MEDS: ACCU-CHEK COMFORT CURVE STRIP VI SCH (06:33)
[2020-12-20] MEDS: BUDESONIDE (INHALATION) 180 MCG IH IN SCH ×2 (07:15→21:32)
[2020-12-20 08:03] LABS: Potassium 3.8 mmol/L (3.5-5.1)
[2020-12-20 08:04] LABS: Albumin 2.3 g/dL (3.4-5.0); BUN/Creatinine Ratio 24.2; Bilirubin, Total 0.8 mg/dL (0.2-1.0); Calcium 7.7 mg/dL (8.5-10.1)
[2020-12-20] MEDS: MORPHINE SULF INJ 2 MG/ML SYRINGE 1ML IV PRN ×3 (09:05→23:00)
[2020-12-20] MEDS: DOXYCYCLINE 100MG/250ML 250 ML IV SCH ×2 (10:30→23:00)
[2020-12-20] MEDS: POTASSIUM CHL 20 Meq TABLET PO SCH (10:30)
[2020-12-20] MEDS: FAMOTIDINE 20 MG TAB PO SCH ×2 (10:30→22:14)
[2020-12-20] MEDS: ZINC SULFATE 220mg CAP or TAB PO SCH (10:30)
[2020-12-20] MEDS: ENOXAPARIN SOD 80 MG/0.8ML SYRINGE SC SCH ×2 (10:30→22:14)
[2020-12-20] MEDS: DexAMETHasone SOD PHOS 10MG/1ML VIAL INJ IV SCH (10:30)
[2020-12-20] MEDS: ASPirin 81 mg TAB PO SCH (10:30)
[2020-12-20] MEDS: ASCORBIC ACID 1,000 MG TAB PO SCH (10:30)
[2020-12-20] MEDS: CHOLECALCIFEROL (VITD3) 2,000 UNIT CAP/TAB PO SCH (10:30)
[2020-12-20] MEDS ORDERED: REMDESIVIR 100mg 100 MG in SODIUM CHL 0.9% 230 ML IV ONE ×2 (21:15→21:30)
[2020-12-20] MEDS: ALBUTEROL SULF HFA 90MCG INH 200DOSE IN PRN (21:32)
[2020-12-20] MEDS: ATORVASTATIN 20 MG TAB PO SCH (22:14)
[2020-12-21] VITALS: BP 142/77
[2020-12-21] MEDS: FUROSEMIDE 40 MG/4 ML VIAL IV SCH ×2 (06:00→19:00)
[2020-12-21] MEDS: ALBUTEROL SULF HFA 90MCG INH 200DOSE IN PRN ×2 (06:10→21:54)
[2020-12-21] MEDS: BUDESONIDE (INHALATION) 180 MCG IH IN SCH ×2 (06:10→21:54)
[2020-12-21] MEDS: LEVOTHYROXINE SODIUM 112 MCG TAB PO SCH (06:40)
[2020-12-21 07:34] VITALS: BP 136/71
[2020-12-21] MEDS: REMDESIVIR 100mg 100 MG in SODIUM CHL 0.9% 230 ML IV SCH (08:30)
[2020-12-21] MEDS: DexAMETHasone SOD PHOS 10MG/1ML VIAL INJ IV SCH (10:45)
[2020-12-21] MEDS: ENOXAPARIN SOD 80 MG/0.8ML SYRINGE SC SCH ×2 (10:46→21:39)
[2020-12-21] MEDS: ZINC SULFATE 220mg CAP or TAB PO SCH (10:46)
[2020-12-21] MEDS: CHOLECALCIFEROL (VITD3) 2,000 UNIT CAP/TAB PO SCH (10:46)
[2020-12-21] MEDS: POTASSIUM CHL 20 Meq TABLET PO SCH (10:46)
[2020-12-21] MEDS: ASCORBIC ACID 1,000 MG TAB PO SCH (10:46)
[2020-12-21] MEDS: ASPirin 81 mg TAB PO SCH (10:46)
[2020-12-21] MEDS: FAMOTIDINE 20 MG TAB PO SCH ×2 (10:46→21:39)
[2020-12-21 15:29] VITALS: BP 127/85
[2020-12-21] MEDS: ATORVASTATIN 20 MG TAB PO SCH (21:39)
[2020-12-21] MEDS: MORPHINE SULF INJ 2 MG/ML SYRINGE 1ML IV PRN (21:40)
[2020-12-22] VITALS: BP 128/81
[2020-12-22] MEDS: FUROSEMIDE 40 MG/4 ML VIAL IV SCH (06:00)
[2020-12-22] MEDS: LEVOTHYROXINE SODIUM 112 MCG TAB PO SCH (06:19)
[2020-12-22] MEDS: ALBUTEROL SULF HFA 90MCG INH 200DOSE IN PRN ×2 (06:35→19:17)
[2020-12-22] MEDS: BUDESONIDE (INHALATION) 180 MCG IH IN SCH ×2 (06:35→19:17)
[2020-12-22 08:00] VITALS: BP 107/63
[2020-12-22 09:39] LABS: Potassium 4.1 mmol/L (3.5-5.1)
[2020-12-22 09:46] LABS: BUN/Creatinine Ratio 29.7; Calcium 8.2 mg/dL (8.5-10.1)
[2020-12-22] MEDS: FAMOTIDINE 20 MG TAB PO SCH ×2 (14:00→21:21)
[2020-12-22] MEDS: ASCORBIC ACID 1,000 MG TAB PO SCH (14:00)
[2020-12-22] MEDS: ENOXAPARIN SOD 80 MG/0.8ML SYRINGE SC SCH ×2 (14:00→21:21)
[2020-12-22] MEDS: CHOLECALCIFEROL (VITD3) 2,000 UNIT CAP/TAB PO SCH (14:00)
[2020-12-22] MEDS: POTASSIUM CHL 20 Meq TABLET PO SCH (14:00)
[2020-12-22] MEDS: ASPirin 81 mg TAB PO SCH (14:00)
[2020-12-22] MEDS: ZINC SULFATE 220mg CAP or TAB PO SCH (14:00)
[2020-12-22] MEDS: DexAMETHasone SOD PHOS 10MG/1ML VIAL INJ IV SCH (14:00)
[2020-12-22 16:00] VITALS: BP 106/67
[2020-12-22] MEDS: DOXYCYCLINE 100MG/250ML 250 ML IV SCH (17:00)
[2020-12-22] MEDS ORDERED: CEFTRIAXONE SODIUM 2 GM in D5W 5% 50 ML IV ONE (17:00)
[2020-12-22] MEDS: FUROSEMIDE 20 MG/2 ML VIAL IV SCH (18:00)
[2020-12-22] MEDS: ATORVASTATIN 20 MG TAB PO SCH (21:21)
[2020-12-22] MEDS: MORPHINE SULF INJ 2 MG/ML SYRINGE 1ML IV PRN (23:06)
[2020-12-23] VITALS: BP 123/87
[2020-12-23] MEDS: DOXYCYCLINE 100MG/250ML 250 ML IV SCH ×2 (04:09→17:25)
[2020-12-23] MEDS: FUROSEMIDE 20 MG/2 ML VIAL IV SCH (06:00)
[2020-12-23] MEDS: LEVOTHYROXINE SODIUM 112 MCG TAB PO SCH (06:32)
[2020-12-23] MEDS: BUDESONIDE (INHALATION) 180 MCG IH IN SCH ×2 (06:56→20:45)
[2020-12-23] MEDS: ALBUTEROL SULF HFA 90MCG INH 200DOSE IN PRN ×2 (06:56→20:45)
[2020-12-23 07:56] VITALS: BP 138/76
[2020-12-23 09:30] LABS: Basophils # (auto) 0 10 ^3/uL (0-0.2); Basophils % (auto) 0.1 % (0.0-2.0); Eosinophils # (auto) 0.2 10 ^3/uL (0-0.8); Eosinophils % (auto) 2.4 % (0.0-7.0); Hematocrit 45.3 % (41.0-53.0); Lymphocytes # (auto) 0.9 10 ^3/uL (0.4-5.4); Mean Corpuscular Hemoglobin 32.9 pg (28.0-32.0); Mean Corpuscular Volume 99.7 fL (80.0-100.0); Monocytes # (auto) 0.9 10 ^3/uL (0-1.3); Monocytes % (auto) 9.4 % (0.0-12.0); Neutrophils # (auto) 7.6 10 ^3/uL (1.6-8.6); Neutrophils % (auto) 79.1 % (37.0-80.0); Nucleated Red Blood Cells % 0.1 %; Platelet Count (auto) 287 10^3/uL (140-450); Red Blood Cells 4.54 10^6/uL (4.5-5.90); White Blood Cell 9.7 10^3/uL (4.4-10.8)
[2020-12-23] MEDS: DexAMETHasone SOD PHOS 10MG/1ML VIAL INJ IV SCH (10:46)
[2020-12-23] MEDS: ENOXAPARIN SOD 80 MG/0.8ML SYRINGE SC SCH ×2 (10:47→21:24)
[2020-12-23] MEDS: FAMOTIDINE 20 MG TAB PO SCH ×2 (10:47→21:23)
[2020-12-23] MEDS: ZINC SULFATE 220mg CAP or TAB PO SCH (10:47)
[2020-12-23] MEDS: ASCORBIC ACID 1,000 MG TAB PO SCH (10:47)
[2020-12-23] MEDS: ASPirin 81 mg TAB PO SCH (10:47)
[2020-12-23] MEDS: CHOLECALCIFEROL (VITD3) 2,000 UNIT CAP/TAB PO SCH (10:47)
[2020-12-23] MEDS: POTASSIUM CHL 20 Meq TABLET PO SCH (10:47)
[2020-12-23] MEDS ORDERED: cefTRIAXone 1GM/50ML D5W 50 ML IV ONE (10:50)
[2020-12-23] MEDS: CEFTRIAXONE SODIUM 2 GM in D5W 5% 50 ML IV SCH (11:03)
[2020-12-23 16:00] VITALS: BP 114/70
[2020-12-23] MEDS: FUROSEMIDE 40 MG/4 ML VIAL IV SCH (17:25)
[2020-12-23] MEDS: MORPHINE SULF INJ 2 MG/ML SYRINGE 1ML IV PRN (22:14)
[2020-12-24] VITALS: BP_SYST 116; BP_SYST 122; BP_DIAS 52; BP_DIAS 74
[2020-12-24 00:45] VITALS: BP 130/85
[2020-12-24] MEDS: DOXYCYCLINE 100MG/250ML 250 ML IV SCH ×2 (04:59→17:24)
[2020-12-24] MEDS: FUROSEMIDE 40 MG/4 ML VIAL IV SCH ×2 (06:18→17:23)
[2020-12-24] MEDS: MORPHINE SULF INJ 2 MG/ML SYRINGE 1ML IV PRN ×2 (06:26→20:16)
[2020-12-24 06:29] LABS: Basophils # (auto) 0 10 ^3/uL (0-0.2); Basophils % (auto) 0.2 % (0.0-2.0); Eosinophils # (auto) 0.1 10 ^3/uL (0-0.8); Eosinophils % (auto) 1.6 % (0.0-7.0); Hemoglobin 15.1 g/dL (13.5-17.5); Lymphocytes # (auto) 0.8 10 ^3/uL (0.4-5.4); Lymphocytes % (auto) 12.7 % (10.0-50.0); Mean Corpuscular Hemoglobin 33.3 pg (28.0-32.0); Mean Corpuscular Hgb Conc. 33.6 g/dL (32.0-36.0); Mean Corpuscular Volume 98.9 fL (80.0-100.0); Monocytes # (auto) 0.8 10 ^3/uL (0-1.3); Monocytes % (auto) 12.9 % (0.0-12.0); Neutrophils # (auto) 4.5 10 ^3/uL (1.6-8.6); Neutrophils % (auto) 72.6 % (37.0-80.0); Nucleated Red Blood Cells % 0.2 %; Platelet Count (auto) 301 10^3/uL (140-450); Red Blood Cells 4.55 10^6/uL (4.5-5.90); Red Cell Distribution Width 18.2 % (11.8-14.3); White Blood Cell 6.2 10^3/uL (4.4-10.8)
[2020-12-24] MEDS: LEVOTHYROXINE SODIUM 112 MCG TAB PO SCH (06:32)
[2020-12-24 06:37] LABS: Potassium 4.3 mmol/L (3.5-5.1)
[2020-12-24 06:39] LABS: BUN/Creatinine Ratio 29.7
[2020-12-24] MEDS: BUDESONIDE (INHALATION) 180 MCG IH IN SCH ×2 (07:08→19:52)
[2020-12-24 08:00] VITALS: BP 117/77
[2020-12-24] MEDS: ENOXAPARIN SOD 80 MG/0.8ML SYRINGE SC SCH ×2 (09:40→21:58)
[2020-12-24] MEDS: ZINC SULFATE 220mg CAP or TAB PO SCH (09:41)
[2020-12-24] MEDS: CHOLECALCIFEROL (VITD3) 2,000 UNIT CAP/TAB PO SCH (09:41)
[2020-12-24] MEDS: ASPirin 81 mg TAB PO SCH (09:41)
[2020-12-24] MEDS: DexAMETHasone SOD PHOS 10MG/1ML VIAL INJ IV SCH (09:41)
[2020-12-24] MEDS: POTASSIUM CHL 20 Meq TABLET PO SCH (09:41)
[2020-12-24] MEDS: FAMOTIDINE 20 MG TAB PO SCH ×2 (09:42→21:58)
[2020-12-24] MEDS: ASCORBIC ACID 1,000 MG TAB PO SCH (09:42)
[2020-12-24] MEDS: CEFTRIAXONE SODIUM 2 GM in D5W 5% 50 ML IV SCH (09:56)
[2020-12-24 16:00] VITALS: BP 108/72
[2020-12-24] MEDS: ALBUTEROL SULF HFA 90MCG INH 200DOSE IN PRN (19:52)
[2020-12-25] VITALS: BP 103/66
[2020-12-25] MEDS: DOXYCYCLINE 100MG/250ML 250 ML IV SCH ×2 (04:55→17:12)
[2020-12-25] MEDS: MORPHINE SULF INJ 2 MG/ML SYRINGE 1ML IV PRN ×2 (05:53→17:10)
[2020-12-25] MEDS: FUROSEMIDE 40 MG/4 ML VIAL IV SCH ×2 (06:10→17:11)
[2020-12-25] MEDS: LEVOTHYROXINE SODIUM 112 MCG TAB PO SCH (06:32)
[2020-12-25 07:11] LABS: Basophils # (auto) 0 10 ^3/uL (0-0.2); Basophils % (auto) 0.2 % (0.0-2.0); Eosinophils # (auto) 0.1 10 ^3/uL (0-0.8); Eosinophils % (auto) 1.2 % (0.0-7.0); Hematocrit 45.7 % (41.0-53.0); Hemoglobin 15.7 g/dL (13.5-17.5); Lymphocytes # (auto) 0.9 10 ^3/uL (0.4-5.4); Lymphocytes % (auto) 13.4 % (10.0-50.0); Mean Corpuscular Hemoglobin 33.6 pg (28.0-32.0); Mean Corpuscular Hgb Conc. 34.3 g/dL (32.0-36.0); Monocytes # (auto) 0.8 10 ^3/uL (0-1.3); Neutrophils # (auto) 4.9 10 ^3/uL (1.6-8.6); Neutrophils % (auto) 73.2 % (37.0-80.0); Nucleated Red Blood Cells % 0.2 %; Platelet Count (auto) 295 10^3/uL (140-450); Red Blood Cells 4.67 10^6/uL (4.5-5.90); Red Cell Distribution Width 17.9 % (11.8-14.3); White Blood Cell 6.7 10^3/uL (4.4-10.8)
[2020-12-25 07:32] LABS: Albumin 2.6 g/dL (3.4-5.0); Calcium 8.4 mg/dL (8.5-10.1); Potassium 4.5 mmol/L (3.5-5.1)
[2020-12-25 07:47] LABS: BUN/Creatinine Ratio 33.8; Bilirubin, Total 0.8 mg/dL (0.2-1.0); Total Protein 7.7 g/dL (6.4-8.2)
[2020-12-25 08:00] VITALS: BP 125/91
[2020-12-25] MEDS: BUDESONIDE (INHALATION) 180 MCG IH IN SCH ×2 (09:53→19:52)
[2020-12-25] MEDS: ALBUTEROL SULF HFA 90MCG INH 200DOSE IN PRN ×2 (09:53→19:52)
[2020-12-25] MEDS: DexAMETHasone SOD PHOS 10MG/1ML VIAL INJ IV SCH (10:00)
[2020-12-25] MEDS: CEFTRIAXONE SODIUM 2 GM in D5W 5% 50 ML IV SCH (10:00)
[2020-12-25] MEDS: ASCORBIC ACID 1,000 MG TAB PO SCH (10:01)
[2020-12-25] MEDS: CHOLECALCIFEROL (VITD3) 2,000 UNIT CAP/TAB PO SCH (10:01)
[2020-12-25] MEDS: ZINC SULFATE 220mg CAP or TAB PO SCH (10:01)
[2020-12-25] MEDS: POTASSIUM CHL 20 Meq TABLET PO SCH (10:01)
[2020-12-25] MEDS: FAMOTIDINE 20 MG TAB PO SCH ×2 (10:01→22:00)
[2020-12-25] MEDS: ASPirin 81 mg TAB PO SCH (10:01)
[2020-12-25] MEDS: ENOXAPARIN SOD 80 MG/0.8ML SYRINGE SC SCH ×2 (10:02→22:00)
[2020-12-25 16:00] VITALS: BP 108/71
[2020-12-25 23:48] VITALS: BP 138/87
[2020-12-26] MEDS: MORPHINE SULF INJ 2 MG/ML SYRINGE 1ML IV PRN ×3 (03:08→22:43)
[2020-12-26] MEDS: DOXYCYCLINE 100MG/250ML 250 ML IV SCH ×2 (05:00→17:11)
[2020-12-26] MEDS: FUROSEMIDE 40 MG/4 ML VIAL IV SCH ×2 (06:18→17:11)
[2020-12-26] MEDS: LEVOTHYROXINE SODIUM 112 MCG TAB PO SCH (06:18)
[2020-12-26] MEDS: ALBUTEROL SULF HFA 90MCG INH 200DOSE IN PRN ×2 (07:30→20:10)
[2020-12-26] MEDS: BUDESONIDE (INHALATION) 180 MCG IH IN SCH ×2 (07:30→20:10)
[2020-12-26 08:00] VITALS: BP 137/75
[2020-12-26] MEDS: ZINC SULFATE 220mg CAP or TAB PO SCH (10:03)
[2020-12-26] MEDS: DexAMETHasone SOD PHOS 10MG/1ML VIAL INJ IV SCH (10:03)
[2020-12-26] MEDS: ASPirin 81 mg TAB PO SCH (10:03)
[2020-12-26] MEDS: CEFTRIAXONE SODIUM 2 GM in D5W 5% 50 ML IV SCH (10:03)
[2020-12-26] MEDS: ASCORBIC ACID 1,000 MG TAB PO SCH (10:04)
[2020-12-26] MEDS: CHOLECALCIFEROL (VITD3) 2,000 UNIT CAP/TAB PO SCH (10:04)
[2020-12-26] MEDS: POTASSIUM CHL 20 Meq TABLET PO SCH (10:04)
[2020-12-26] MEDS: ENOXAPARIN SOD 80 MG/0.8ML SYRINGE SC SCH ×2 (10:04→22:00)
[2020-12-26] MEDS: FAMOTIDINE 20 MG TAB PO SCH ×2 (10:04→22:00)
[2020-12-26 16:00] VITALS: BP 112/76
[2020-12-26] MEDS ORDERED: [UNRECOGNIZED DRUG - CODE] TOP (17:25)
[2020-12-26] MEDS ORDERED: POM (17:25)
[2020-12-26] MEDS ORDERED: ECON1CRE6 TOP (17:25)
[2020-12-27 00:22] VITALS: BP 122/75
[2020-12-27] MEDS: DOXYCYCLINE 100MG/250ML 250 ML IV SCH ×2 (05:00→16:59)
[2020-12-27] MEDS: FUROSEMIDE 40 MG/4 ML VIAL IV SCH ×2 (06:00→17:00)
[2020-12-27] MEDS: LEVOTHYROXINE SODIUM 112 MCG TAB PO SCH (06:43)
[2020-12-27] MEDS: ALBUTEROL SULF HFA 90MCG INH 200DOSE IN PRN ×2 (07:42→22:42)
[2020-12-27] MEDS: BUDESONIDE (INHALATION) 180 MCG IH IN SCH ×2 (07:42→22:00)
[2020-12-27 08:00] VITALS: BP 115/61
[2020-12-27] MEDS: ZINC SULFATE 220mg CAP or TAB PO SCH (09:33)
[2020-12-27] MEDS: FAMOTIDINE 20 MG TAB PO SCH ×2 (09:34→21:35)
[2020-12-27] MEDS: ASPirin 81 mg TAB PO SCH (09:34)
[2020-12-27] MEDS: CHOLECALCIFEROL (VITD3) 2,000 UNIT CAP/TAB PO SCH (09:34)
[2020-12-27] MEDS: ASCORBIC ACID 1,000 MG TAB PO SCH (09:34)
[2020-12-27] MEDS: POTASSIUM CHL 20 Meq TABLET PO SCH (09:35)
[2020-12-27] MEDS: CEFTRIAXONE SODIUM 2 GM in D5W 5% 50 ML IV SCH (09:37)
[2020-12-27] MEDS: DexAMETHasone SOD PHOS 10MG/1ML VIAL INJ IV SCH (09:37)
[2020-12-27] MEDS: ENOXAPARIN SOD 80 MG/0.8ML SYRINGE SC SCH ×2 (09:38→21:35)
[2020-12-27] MEDS: MORPHINE SULF INJ 2 MG/ML SYRINGE 1ML IV PRN ×2 (10:03→17:13)
[2020-12-27 16:00] VITALS: BP 112/61
[2020-12-28] VITALS: BP 113/68
[2020-12-28 00:06] VITALS: BP 113/68
[2020-12-28] MEDS: DOXYCYCLINE 100MG/250ML 250 ML IV SCH ×2 (05:22→17:30)
[2020-12-28] MEDS: MORPHINE SULF INJ 2 MG/ML SYRINGE 1ML IV PRN ×2 (05:29→15:26)
[2020-12-28] MEDS: FUROSEMIDE 40 MG/4 ML VIAL IV SCH ×2 (05:30→18:12)
[2020-12-28] MEDS: ALBUTEROL SULF HFA 90MCG INH 200DOSE IN PRN ×2 (06:00→21:39)
[2020-12-28] MEDS: BUDESONIDE (INHALATION) 180 MCG IH IN SCH ×2 (06:00→21:39)
[2020-12-28] MEDS: LEVOTHYROXINE SODIUM 112 MCG TAB PO SCH (06:13)
[2020-12-28 08:00] VITALS: BP 122/94
[2020-12-28] MEDS: CEFTRIAXONE SODIUM 2 GM in D5W 5% 50 ML IV SCH (09:22)
[2020-12-28] MEDS: ASPirin 81 mg TAB PO SCH (09:22)
[2020-12-28] MEDS: FAMOTIDINE 20 MG TAB PO SCH ×2 (09:22→21:01)
[2020-12-28] MEDS: ENOXAPARIN SOD 80 MG/0.8ML SYRINGE SC SCH ×2 (09:22→21:02)
[2020-12-28] MEDS: CHOLECALCIFEROL (VITD3) 2,000 UNIT CAP/TAB PO SCH (09:23)
[2020-12-28] MEDS: DexAMETHasone SOD PHOS 10MG/1ML VIAL INJ IV SCH (09:23)
[2020-12-28] MEDS: POTASSIUM CHL 20 Meq TABLET PO SCH (09:23)
[2020-12-28 16:00] VITALS: BP 130/76
[2020-12-28 23:30] VITALS: BP 120/66
[2020-12-29] MEDS: MORPHINE SULF INJ 2 MG/ML SYRINGE 1ML IV PRN ×3 (00:11→21:01)
[2020-12-29] MEDS: DOXYCYCLINE 100MG/250ML 250 ML IV SCH ×2 (05:00→16:53)
[2020-12-29] MEDS: LEVOTHYROXINE SODIUM 112 MCG TAB PO SCH (05:33)
[2020-12-29] MEDS: FUROSEMIDE 40 MG/4 ML VIAL IV SCH ×2 (05:33→17:52)
[2020-12-29 08:00] VITALS: BP 117/71
[2020-12-29] MEDS: FAMOTIDINE 20 MG TAB PO SCH ×2 (10:00→21:00)
[2020-12-29] MEDS: CHOLECALCIFEROL (VITD3) 2,000 UNIT CAP/TAB PO SCH (10:00)
[2020-12-29 10:08] LABS: Basophils # (auto) 0 10 ^3/uL (0-0.2); Basophils % (auto) 0.1 % (0.0-2.0); Eosinophils # (auto) 0.1 10 ^3/uL (0-0.8); Eosinophils % (auto) 0.6 % (0.0-7.0); Hematocrit 45.7 % (41.0-53.0); Hemoglobin 15.5 g/dL (13.5-17.5); Lymphocytes # (auto) 0.8 10 ^3/uL (0.4-5.4); Lymphocytes % (auto) 9.1 % (10.0-50.0); Mean Corpuscular Hemoglobin 33.3 pg (28.0-32.0); Mean Corpuscular Hgb Conc. 33.9 g/dL (32.0-36.0); Mean Corpuscular Volume 98.3 fL (80.0-100.0); Monocytes # (auto) 1.2 10 ^3/uL (0-1.3); Monocytes % (auto) 13.3 % (0.0-12.0); Neutrophils % (auto) 76.9 % (37.0-80.0); Nucleated Red Blood Cells % 0.2 %; Platelet Count (auto) 260 10^3/uL (140-450); Red Blood Cells 4.65 10^6/uL (4.5-5.90); Red Cell Distribution Width 18.2 % (11.8-14.3); White Blood Cell 9.1 10^3/uL (4.4-10.8)
[2020-12-29 10:21] LABS: Calcium 8.1 mg/dL (8.5-10.1); Potassium 4.8 mmol/L (3.5-5.1)
[2020-12-29] MEDS: ASPirin 81 mg TAB PO SCH (10:46)
[2020-12-29] MEDS: POTASSIUM CHL 20 Meq TABLET PO SCH (10:46)
[2020-12-29] MEDS: ENOXAPARIN SOD 80 MG/0.8ML SYRINGE SC SCH ×2 (10:47→21:00)
[2020-12-29] MEDS: CEFTRIAXONE SODIUM 2 GM in D5W 5% 50 ML IV SCH (10:47)
[2020-12-29] MEDS: DexAMETHasone SOD PHOS 10MG/1ML VIAL INJ IV SCH (15:06)
[2020-12-29 16:04] VITALS: BP 127/76
[2020-12-29] MEDS: BUDESONIDE (INHALATION) 180 MCG IH IN SCH (21:30)
[2020-12-30] VITALS: BP 139/65
[2020-12-30] MEDS: MORPHINE SULF INJ 2 MG/ML SYRINGE 1ML IV PRN ×2 (05:06→18:30)
[2020-12-30] MEDS: DOXYCYCLINE 100MG/250ML 250 ML IV SCH (05:06)
[2020-12-30] MEDS: FUROSEMIDE 40 MG/4 ML VIAL IV SCH ×2 (06:03→18:29)
[2020-12-30] MEDS: LEVOTHYROXINE SODIUM 112 MCG TAB PO SCH (06:03)
[2020-12-30] MEDS: BUDESONIDE (INHALATION) 180 MCG IH IN SCH ×3 (06:25→20:03)
[2020-12-30] MEDS: ALBUTEROL SULF HFA 90MCG INH 200DOSE IN PRN ×2 (06:27→20:03)
[2020-12-30 08:00] VITALS: BP 109/67
[2020-12-30] MEDS: ASPirin 81 mg TAB PO SCH (10:10)
[2020-12-30] MEDS: POTASSIUM CHL 20 Meq TABLET PO SCH (10:10)
[2020-12-30] MEDS: CHOLECALCIFEROL (VITD3) 2,000 UNIT CAP/TAB PO SCH (10:10)
[2020-12-30] MEDS: FAMOTIDINE 20 MG TAB PO SCH ×2 (10:11→22:14)
[2020-12-30] MEDS: DexAMETHasone 4 MG TAB PO SCH (10:11)
[2020-12-30] MEDS: ENOXAPARIN SOD 80 MG/0.8ML SYRINGE SC SCH ×2 (10:11→22:14)
[2020-12-30] MEDS: CEFTRIAXONE SODIUM 2 GM in D5W 5% 50 ML IV SCH (10:12)
[2020-12-30 16:00] VITALS: BP 138/66
[2020-12-30] MEDS: TEMAZEPAM 15 MG CAP PO PRN (22:14)
[2020-12-30 23:55] VITALS: BP 124/68
[2020-12-31] MEDS: MORPHINE SULF INJ 2 MG/ML SYRINGE 1ML IV PRN ×3 (00:30→13:49)
[2020-12-31] MEDS: FUROSEMIDE 40 MG/4 ML VIAL IV SCH ×2 (06:36→18:00)
[2020-12-31] MEDS: LEVOTHYROXINE SODIUM 112 MCG TAB PO SCH (06:36)
[2020-12-31] MEDS: BUDESONIDE (INHALATION) 180 MCG IH IN SCH ×2 (06:45→20:26)
[2020-12-31] MEDS: ALBUTEROL SULF HFA 90MCG INH 200DOSE IN PRN ×3 (06:45→20:26)
[2020-12-31 07:47] LABS: Calcium 8.3 mg/dL (8.5-10.1); Potassium 3.8 mmol/L (3.5-5.1)
[2020-12-31 07:49] LABS: BUN/Creatinine Ratio 30.4
[2020-12-31 08:02] VITALS: BP 141/76
[2020-12-31] MEDS: CEFTRIAXONE SODIUM 2 GM in D5W 5% 50 ML IV SCH (10:04)
[2020-12-31] MEDS: ASPirin 81 mg TAB PO SCH (10:04)
[2020-12-31] MEDS: ENOXAPARIN SOD 80 MG/0.8ML SYRINGE SC SCH ×2 (10:05→22:20)
[2020-12-31] MEDS: POTASSIUM CHL 20 Meq TABLET PO SCH (10:05)
[2020-12-31] MEDS: DexAMETHasone 4 MG TAB PO SCH (10:05)
[2020-12-31] MEDS: CHOLECALCIFEROL (VITD3) 2,000 UNIT CAP/TAB PO SCH (10:05)
[2020-12-31] MEDS: FAMOTIDINE 20 MG TAB PO SCH ×2 (10:05→22:19)
[2020-12-31 16:30] VITALS: BP 122/59
[2020-12-31] MEDS: TEMAZEPAM 15 MG CAP PO PRN (22:21)
[2021-01-01] VITALS (7 sets, daily range): BP systolic 113–137; BP diastolic 61–79
[2021-01-01] MEDS: FUROSEMIDE 40 MG/4 ML VIAL IV SCH ×2 (06:31→17:56)
[2021-01-01] MEDS: LEVOTHYROXINE SODIUM 112 MCG TAB PO SCH (06:31)
[2021-01-01] MEDS: MORPHINE SULF INJ 2 MG/ML SYRINGE 1ML IV PRN ×4 (06:41→23:58)
[2021-01-01] MEDS: BUDESONIDE (INHALATION) 180 MCG IH IN SCH ×2 (07:30→19:48)
[2021-01-01] MEDS: ALBUTEROL SULF HFA 90MCG INH 200DOSE IN PRN ×2 (07:30→19:48)
[2021-01-01] MEDS: DexAMETHasone 4 MG TAB PO SCH (10:04)
[2021-01-01] MEDS: ASPirin 81 mg TAB PO SCH (10:04)
[2021-01-01] MEDS: POTASSIUM CHL 20 Meq TABLET PO SCH (10:04)
[2021-01-01] MEDS: FAMOTIDINE 20 MG TAB PO SCH ×2 (10:04→21:22)
[2021-01-01] MEDS: CHOLECALCIFEROL (VITD3) 2,000 UNIT CAP/TAB PO SCH (10:04)
[2021-01-01] MEDS: ENOXAPARIN SOD 80 MG/0.8ML SYRINGE SC SCH ×2 (10:04→21:22)
[2021-01-01] MEDS: CEFTRIAXONE SODIUM 2 GM in D5W 5% 50 ML IV SCH (12:10)
[2021-01-01] MEDS: TEMAZEPAM 15 MG CAP PO PRN (21:22)
[2021-01-02 05:09] VITALS: BP 139/67
[2021-01-02] MEDS: FUROSEMIDE 40 MG/4 ML VIAL IV SCH ×2 (05:59→18:18)
[2021-01-02] MEDS: LEVOTHYROXINE SODIUM 112 MCG TAB PO SCH (06:00)
[2021-01-02] MEDS: ALBUTEROL SULF HFA 90MCG INH 200DOSE IN PRN ×2 (06:28→19:40)
[2021-01-02] MEDS: BUDESONIDE (INHALATION) 180 MCG IH IN SCH ×2 (06:28→19:40)
[2021-01-02] MEDS: CHOLECALCIFEROL (VITD3) 2,000 UNIT CAP/TAB PO SCH (08:55)
[2021-01-02] MEDS: FAMOTIDINE 20 MG TAB PO SCH ×2 (08:55→21:37)
[2021-01-02] MEDS: DexAMETHasone 4 MG TAB PO SCH (08:55)
[2021-01-02] MEDS: ASPirin 81 mg TAB PO SCH (08:55)
[2021-01-02] MEDS: POTASSIUM CHL 20 Meq TABLET PO SCH (08:56)
[2021-01-02] MEDS: ENOXAPARIN SOD 80 MG/0.8ML SYRINGE SC SCH ×2 (08:56→21:37)
[2021-01-02] MEDS: CEFTRIAXONE SODIUM 2 GM in D5W 5% 50 ML IV SCH (08:56)
[2021-01-02] MEDS: MORPHINE SULF INJ 2 MG/ML SYRINGE 1ML IV PRN (08:56)
[2021-01-02 09:00] VITALS: BP 112/65
[2021-01-02 12:36] VITALS: BP 121/70
[2021-01-02 16:42] VITALS: BP 134/81
[2021-01-02 20:00] VITALS: BP 111/79
[2021-01-02] MEDS: TEMAZEPAM 15 MG CAP PO PRN (21:37)
[2021-01-03] MEDS: MORPHINE SULF INJ 2 MG/ML SYRINGE 1ML IV PRN (03:07)
[2021-01-03 05:00] VITALS: BP 129/65
[2021-01-03] MEDS: FUROSEMIDE 40 MG/4 ML VIAL IV SCH ×2 (05:37→17:49)
[2021-01-03] MEDS: BUDESONIDE (INHALATION) 180 MCG IH IN SCH ×2 (06:11→07:30)
[2021-01-03] MEDS: ALBUTEROL SULF HFA 90MCG INH 200DOSE IN PRN ×3 (06:11→08:27)
[2021-01-03] MEDS: LEVOTHYROXINE SODIUM 112 MCG TAB PO SCH (06:23)
[2021-01-03 09:00] VITALS: BP 110/69
[2021-01-03] MEDS: ASPirin 81 mg TAB PO SCH (10:19)
[2021-01-03] MEDS: CHOLECALCIFEROL (VITD3) 2,000 UNIT CAP/TAB PO SCH (10:20)
[2021-01-03] MEDS: FAMOTIDINE 20 MG TAB PO SCH (10:20)
[2021-01-03] MEDS: ENOXAPARIN SOD 80 MG/0.8ML SYRINGE SC SCH (10:20)
[2021-01-03] MEDS: DexAMETHasone 4 MG TAB PO SCH (10:20)
[2021-01-03] MEDS: POTASSIUM CHL 20 Meq TABLET PO SCH (10:20)
[2021-01-03] MEDS: CEFTRIAXONE SODIUM 2 GM in D5W 5% 50 ML IV SCH (10:48)
[2021-01-03 13:02] VITALS: BP 124/83
[2021-01-03 13:51] VITALS: BP 124/83
[2021-01-03] MEDS ORDERED: PRED10TA PO (14:54)
[2021-01-03 16:42] VITALS: BP 115/65
== END 2021-01-03 18:50 | disposition home or self-care (01) | DRG 720 ==
LOC: EDBD 15:55 → ER 15:58 → TELE 21:13 → TELE-WESTW 12-18 13:57
PROVIDERS: ADMIT Nurse Practitioner; ATTEND Internal Medicine Nephrology
PROC: XW13325 Transfusion of Convalescent Plasma (Nonautologous) into Peripheral Vein, Percutaneous Approach, New Technology Group 5 (ICD-10-PCS; principal; 2020-12-20)
PROC: XW033E5 Introduction of Remdesivir Anti-infective into Peripheral Vein, Percutaneous Approach, New Technology Group 5 (ICD-10-PCS; 2020-12-20)
DX: A41.89 Other specified sepsis (principal); U07.1 COVID-19; J96.01 Acute respiratory failure with hypoxia; J12.82 Pneumonia due to coronavirus disease 2019; E44.0 Moderate protein-calorie malnutrition; I11.0 Hypertensive heart disease with heart failure; I50.9 Heart failure, unspecified; E66.01 Morbid (severe) obesity due to excess calories; Z68.44 Body mass index [BMI] 60.0-69.9, adult; J44.0 Chronic obstructive pulmonary disease with (acute) lower respiratory infection; E11.65 Type 2 diabetes mellitus with hyperglycemia; J44.9 Chronic obstructive pulmonary disease, unspecified; L03.115 Cellulitis of right lower limb; J98.11 Atelectasis; R65.20 Severe sepsis without septic shock; E78.5 Hyperlipidemia, unspecified; R63.1 Polydipsia; G89.29 Other chronic pain; F41.9 Anxiety disorder, unspecified; M19.90 Unspecified osteoarthritis, unspecified site; K21.9 Gastro-esophageal reflux disease without esophagitis; F32.9 Major depressive disorder, single episode, unspecified; F17.210 Nicotine dependence, cigarettes, uncomplicated; Z79.899 Other long term (current) drug therapy; Z79.82 Long term (current) use of aspirin; Z82.49 Family history of ischemic heart disease and other diseases of the circulatory system; Z83.3 Family history of diabetes mellitus; Z81.1 Family history of alcohol abuse and dependence
CPT/HCPCS: 36415; 36600; 71045; 73600; 80048; 80053; 81001; 82553; 82728; 82805; 82962; 83605; 83615; 83735; 83880; 84443; 84484; 85025; 85379; 85384; 85610; 85730; 86141; 86850; 86900; 86901; 87040; 87086; 87426; 93970; 93971; 94640; 96365; 96366; 96375; 99291; G0378; J0696; J1100; J1815; J2405; J3490; J7060

== ENCOUNTER 2022-01-29 11:48 | Inpatient (IN) | payer MEDICAID ==
[~2022-01-29] VITALS: Ht 177.8 cm; Wt 245.4 kg
[~2022-01-29 11:48] MED LIST changes: +ACET-1158 PO; +ASPI-498 OR; -ASPI81CH43 PO; -CLIN300C8 PO; +ECON1CRE6 TOP; +GABA100C9 PO; +LEVO112T4 PO; +LISI20TA28 PO; +NITR0.4S29 SL; +POTA10TA51 PO; +PRED10TA PO; +SULI200T5 PO; -[UNRECOGNIZED DRUG - CODE] PO; +[UNRECOGNIZED DRUG - CODE] TOP
[2022-01-29 12:57] LABS: Basophils # (auto) 0.1 10 ^3/uL (0-0.2); Eosinophils # (auto) 0.1 10 ^3/uL (0-0.8); Monocytes # (auto) 0.2 10 ^3/uL (0-1.3); White Blood Cell 3.3 10^3/uL (4.4-10.8)
[2022-01-29 12:59] LABS: Basophils % (auto) 3.3 % (0.0-2.0); Eosinophils % (auto) 1.7 % (0.0-7.0); Hematocrit 36.3 % (41.0-53.0); Hemoglobin 12.4 g/dL (13.5-17.5); Lymphocytes # (auto) 0.7 10 ^3/uL (0.4-5.4); Mean Corpuscular Hemoglobin 37.7 pg (28.0-32.0); Mean Corpuscular Hgb Conc. 34.3 g/dL (32.0-36.0); Mean Corpuscular Volume 110.1 fL (80.0-100.0); Monocytes % (auto) 7.2 % (0.0-12.0); Neutrophils # (auto) 2.2 10 ^3/uL (1.6-8.6); Neutrophils % (auto) 66.8 % (37.0-80.0); Nucleated Red Blood Cells % 0.4 %; Red Cell Distribution Width 19.7 % (11.8-14.3)
[2022-01-29 13:10] LABS: Albumin 3.1 g/dL (3.4-5.0); Calcium 7.6 mg/dL (8.5-10.1); Magnesium 2.1 mg/dL (1.6-2.6); Potassium 4.6 mmol/L (3.5-5.1)
[2022-01-29 13:16] LABS: BUN/Creatinine Ratio 6.8; Bilirubin, Total 1.3 mg/dL (0.2-1.0); Total Protein 6.9 g/dL (6.4-8.2)
[2022-01-29] MEDS ORDERED: chlordiazePOXIDE HCL 25 MG CAP PO ONE (13:45)
[2022-01-29] MEDS ORDERED: LORazepam 2MG/ML-1ML VIAL IV ONE (13:45)
[2022-01-29] MEDS ORDERED: DEXTROSE (50%) 50ML SYRG IV PRN (18:30)
[2022-01-29] MEDS ORDERED: ACETAMINOPHEN 325 MG TAB PO PRN (18:30)
[2022-01-29] MEDS ORDERED: MORPHINE SULFATE 4 MG/ML SYR/VIAL IV PRN (18:30)
[2022-01-29] MEDS ORDERED: DOCUSATE SOD 100 MG CAP PO PRN (18:30)
[2022-01-29] MEDS ORDERED: FUROSEMIDE 40 MG/4 ML VIAL IV ONE (18:30)
[2022-01-29] MEDS ORDERED: ONDANSETRON HCL 4 MG/2 ML VIAL IV PRN (18:30)
[2022-01-29] MEDS ORDERED: MORPHINE SULFATE INJECTION 2 MG/ML SYRG IV PRN (19:00)
[2022-01-29] MEDS ORDERED: NITROGLYCERIN 0.4 MG SL TAB SL PRN (19:00)
[2022-01-29 20:11] LABS: Urine Bacteria FEW /hpf (None Seen); Urine Blood Negative /uL (Negative); Urine Mucus FEW (None Seen); Urine Specific Gravity 1.019 (1.001-1.035); Urine WBC 2 /hpf (0 - 3)
[2022-01-29 20:58] VITALS: BP 129/66
[2022-01-29] MEDS ORDERED: InsuLIN REG 1unit/0.01ml Soln (100units/ml) SC SCH (22:00)
[2022-01-29] MEDS ORDERED: ACCU-CHEK COMFORT CURVE STRIP VI SCH (22:00)
[2022-01-29] MEDS ORDERED: ALBUTEROL SULF HFA 90MCG INH 200DOSE IN SCH (22:00)
[2022-01-29] MEDS: SODIUM CHLOR 0.9% PF (SALINE LOCK) 10ML VIAL/SYR IV SCH (22:27)
[2022-01-29] MEDS: FAMOTIDINE (10MG/ML) 2ML VL IV SCH (22:27)
[2022-01-29] MEDS: LORazepam 2MG/ML-1ML VIAL IV PRN (22:53)
[2022-01-29 23:12] VITALS: BP 121/70
[2022-01-29] MEDS ORDERED: ATOR10TA52 PO (23:46)
[2022-01-29] MEDS ORDERED: FURO40TA4 PO (23:46)
[2022-01-30] MEDS: IPRATROPIUM BROM 0.5 MG/2.5ML INH SOL NEB PRN ×3 (00:23→23:15)
[2022-01-30] MEDS: ALBUTEROL SULF 2.5 MG/0.5ML(0.5%) NEB SOLN NEB PRN ×3 (00:23→23:15)
[2022-01-30] MEDS ORDERED: PNEUMOCOCCAL VACC POLYS 25 MCG/0.5 ML VIAL IM ONE (01:00)
[2022-01-30] MEDS ORDERED: INFLUENZA QUAD 2021-2022 0.5 ML SYRG IM ONE (01:00)
[2022-01-30 05:00] VITALS: BP 119/69
[2022-01-30] MEDS: SODIUM CHLOR 0.9% PF (SALINE LOCK) 10ML VIAL/SYR IV SCH ×3 (05:47→22:00)
[2022-01-30] MEDS: LEVOTHYROXINE SODIUM 112 MCG TAB PO SCH (06:34)
[2022-01-30] MEDS: LORazepam 2MG/ML-1ML VIAL IV PRN ×2 (06:39→14:16)
[2022-01-30 06:42] LABS: Potassium 3.8 mmol/L (3.5-5.1)
[2022-01-30 06:51] LABS: BUN/Creatinine Ratio 10.2; Calcium 7.7 mg/dL (8.5-10.1)
[2022-01-30 06:54] LABS: Bilirubin, Total 1.8 mg/dL (0.2-1.0); Total Protein 6.5 g/dL (6.4-8.2)
[2022-01-30] MEDS ORDERED: InsuLIN REG 1unit/0.01ml Soln (100units/ml) SC SCH (07:00)
[2022-01-30 07:30] LABS: Basophils # (auto) 0 10 ^3/uL (0-0.2); Basophils % (auto) 0.9 % (0.0-2.0); Eosinophils # (auto) 0.1 10 ^3/uL (0-0.8); Lymphocytes # (auto) 0.7 10 ^3/uL (0.4-5.4); Mean Corpuscular Volume 110.6 fL (80.0-100.0); Monocytes # (auto) 0.3 10 ^3/uL (0-1.3)
[2022-01-30 07:32] LABS: Eosinophils % (auto) 2.6 % (0.0-7.0); Hematocrit 35.4 % (41.0-53.0); Lymphocytes % (auto) 18.6 % (10.0-50.0); Mean Corpuscular Hemoglobin 37.5 pg (28.0-32.0); Mean Corpuscular Hgb Conc. 33.9 g/dL (32.0-36.0); Monocytes % (auto) 9.1 % (0.0-12.0); Neutrophils # (auto) 2.5 10 ^3/uL (1.6-8.6); Neutrophils % (auto) 68.8 % (37.0-80.0); Nucleated Red Blood Cells % 0.4 %; White Blood Cell 3.6 10^3/uL (4.4-10.8)
[2022-01-30 07:39] LABS: Red Cell Distribution Width 20.2 % (11.8-14.3)
[2022-01-30 09:00] VITALS: BP 135/70
[2022-01-30] MEDS: FAMOTIDINE (10MG/ML) 2ML VL IV SCH ×2 (09:51→22:00)
[2022-01-30] MEDS: THIAMINE HCL 100 MG TAB PO SCH (09:51)
[2022-01-30] MEDS: MULTIPLE VITAMIN TAB PO SCH (09:51)
[2022-01-30] MEDS: ASPirin 81 mg TAB PO SCH (09:51)
[2022-01-30] MEDS: FOLIC ACID 1 MG TAB PO SCH (09:51)
[2022-01-30] MEDS ORDERED: ENOXAPARIN SOD 40 MG/0.4 ML SYRINGE SC SCH (10:00)
[2022-01-30] MEDS: FUROSEMIDE 40 MG/4 ML VIAL IV SCH (10:00)
[2022-01-30] MEDS: HYDROcodone-ACET 5/325MG TAB PO PRN (11:16)
[2022-01-30] MEDS ORDERED: NICOTINE 21MG/24 HR TOPICAL PATCH TD ONE (12:30)
[2022-01-30 13:00] VITALS: BP 135/69
[2022-01-30] MEDS ORDERED: FURO40TA4 PO (13:09)
[2022-01-30] MEDS ORDERED: POTA10TA32 PO (13:10)
[2022-01-30] MEDS ORDERED: FLU220IH INH (13:10)
[2022-01-30] MEDS ORDERED: GABA300C10 PO (13:10)
[2022-01-30] MEDS ORDERED: ALBU108A5 INH (13:10)
[2022-01-30] MEDS ORDERED: ATO40T PO (13:10)
[2022-01-30 16:47] VITALS: BP 135/70
[2022-01-30 22:00] VITALS: BP 137/73
[2022-01-30] MEDS: ENOXAPARIN SOD 40 MG/0.4 ML SYRINGE SC SCH (22:00)
[2022-01-30 22:16] LABS: Amphetamine Screen, Urine NEGATIVE (NEGATIVE); Barbiturate Scree,Urine NEGATIVE (NEGATIVE); Benzodiazephine Screen, Urine NEGATIVE (NEGATIVE); Cannabinoid Screen, Urine NEGATIVE (NEGATIVE); Cocaine Screen, Urine NEGATIVE (NEGATIVE); Opiate Scree,Urine NEGATIVE (NEGATIVE); Phencyclidine Screen, Urine NEGATIVE (NEGATIVE)
[2022-01-31 04:40] VITALS: BP 112/66
[2022-01-31] MEDS: SODIUM CHLOR 0.9% PF (SALINE LOCK) 10ML VIAL/SYR IV SCH ×2 (06:25→14:00)
[2022-01-31] MEDS: LEVOTHYROXINE SODIUM 112 MCG TAB PO SCH (07:29)
[2022-01-31 07:39] LABS: Potassium 3.7 mmol/L (3.5-5.1)
[2022-01-31 07:42] LABS: Basophils # (auto) 0 10 ^3/uL (0-0.2); Eosinophils # (auto) 0.1 10 ^3/uL (0-0.8); Hematocrit 34.8 % (41.0-53.0); Hemoglobin 11.9 g/dL (13.5-17.5); Lymphocytes # (auto) 0.7 10 ^3/uL (0.4-5.4); Monocytes # (auto) 0.2 10 ^3/uL (0-1.3)
[2022-01-31 07:44] LABS: Basophils % (auto) 0.8 % (0.0-2.0); Eosinophils % (auto) 3.4 % (0.0-7.0); Lymphocytes % (auto) 22.1 % (10.0-50.0); Mean Corpuscular Hgb Conc. 34.2 g/dL (32.0-36.0); Mean Corpuscular Volume 111.3 fL (80.0-100.0); Monocytes % (auto) 7.7 % (0.0-12.0); Nucleated Red Blood Cells % 0.2 %; Red Blood Cells 3.13 10^6/uL (4.5-5.90); White Blood Cell 3.1 10^3/uL (4.4-10.8)
[2022-01-31 07:47] LABS: Albumin 3.1 g/dL (3.4-5.0); BUN/Creatinine Ratio 8.9; Bilirubin, Total 1.8 mg/dL (0.2-1.0); Magnesium 1.8 mg/dL (1.6-2.6); Total Protein 6.6 g/dL (6.4-8.2)
[2022-01-31 07:52] LABS: Red Cell Distribution Width 20.3 % (11.8-14.3)
[2022-01-31 09:00] VITALS: BP 136/77
[2022-01-31] MEDS: NICOTINE 21MG/24 HR TOPICAL PATCH TD SCH (10:00)
[2022-01-31] MEDS: FOLIC ACID 1 MG TAB PO SCH (10:00)
[2022-01-31] MEDS: ASPirin 81 mg TAB PO SCH (10:00)
[2022-01-31] MEDS: POTASSIUM CHL 20 Meq TABLET PO SCH (10:00)
[2022-01-31] MEDS: THIAMINE HCL 100 MG TAB PO SCH (10:00)
[2022-01-31] MEDS: MULTIPLE VITAMIN TAB PO SCH (11:00)
[2022-01-31] MEDS: ENOXAPARIN SOD 40 MG/0.4 ML SYRINGE SC SCH (11:00)
[2022-01-31] MEDS: FUROSEMIDE 40 MG/4 ML VIAL IV SCH (11:00)
[2022-01-31] MEDS ORDERED: methylPREDNISolone SOD SUCC 40 MG/ML VL IV ONE (11:45)
[2022-01-31] MEDS ORDERED: NITROGLYCERIN 0.4 MG SL TAB SL PRN (11:45)
[2022-01-31] MEDS ORDERED: DOXYCYCLINE 100 MG TAB/CAP PO ONE (11:45)
[2022-01-31] MEDS: chlordiazePOXIDE HCL 25 MG CAP PO PRN ×2 (12:00→20:39)
[2022-01-31 13:00] VITALS: BP 124/76
[2022-01-31 17:00] VITALS: BP 133/77
[2022-01-31] MEDS ORDERED: ARTIFICIAL TEARS 15ml EACHEYE PRN (17:30)
[2022-01-31 20:00] VITALS: BP 136/77
[2022-01-31 21:37] VITALS: BP 110/71
[2022-01-31] MEDS: ALBUTEROL SULF 2.5 MG/0.5ML(0.5%) NEB SOLN NEB PRN (23:50)
[2022-01-31] MEDS: IPRATROPIUM BROM 0.5 MG/2.5ML INH SOL NEB PRN (23:50)
[2022-02-01 05:00] VITALS: BP 103/53
[2022-02-01] MEDS: SODIUM CHLOR 0.9% PF (SALINE LOCK) 10ML VIAL/SYR IV SCH ×4 (06:34→22:04)
[2022-02-01] MEDS: DOXYCYCLINE 100 MG TAB/CAP PO SCH ×3 (06:35→22:05)
[2022-02-01] MEDS: ENOXAPARIN SOD 40 MG/0.4 ML SYRINGE SC SCH ×3 (06:35→22:05)
[2022-02-01] MEDS: methylPREDNISolone SOD SUCC 40 MG/ML VL IV SCH ×4 (06:35→22:05)
[2022-02-01] MEDS: LEVOTHYROXINE SODIUM 112 MCG TAB PO SCH (06:36)
[2022-02-01 09:00] VITALS: BP 120/70
[2022-02-01] MEDS: THIAMINE HCL 100 MG TAB PO SCH (10:00)
[2022-02-01] MEDS: FOLIC ACID 1 MG TAB PO SCH (10:00)
[2022-02-01] MEDS: ASPirin 81 mg TAB PO SCH (10:00)
[2022-02-01] MEDS: POTASSIUM CHL 20 Meq TABLET PO SCH (10:00)
[2022-02-01] MEDS: NICOTINE 21MG/24 HR TOPICAL PATCH TD SCH (10:00)
[2022-02-01] MEDS: FUROSEMIDE 40 MG/4 ML VIAL IV SCH (10:00)
[2022-02-01] MEDS: MULTIPLE VITAMIN TAB PO SCH (12:14)
[2022-02-01 12:24] VITALS: BP 136/76
[2022-02-01 17:00] VITALS: BP 135/60
[2022-02-01 19:03] VITALS: BP 135/60
[2022-02-01 22:00] VITALS: BP 109/55
[2022-02-01] MEDS: IPRATROPIUM BROM 0.5 MG/2.5ML INH SOL NEB PRN (22:27)
[2022-02-01] MEDS: ALBUTEROL SULF 2.5 MG/0.5ML(0.5%) NEB SOLN NEB PRN (22:27)
[2022-02-02] MEDS: IPRATROPIUM BROM 0.5 MG/2.5ML INH SOL NEB PRN ×2 (01:56→06:58)
[2022-02-02] MEDS: ALBUTEROL SULF 2.5 MG/0.5ML(0.5%) NEB SOLN NEB PRN ×2 (01:56→06:58)
[2022-02-02 05:00] VITALS: BP 104/57
[2022-02-02] MEDS: methylPREDNISolone SOD SUCC 40 MG/ML VL IV SCH ×3 (06:34→22:12)
[2022-02-02] MEDS: SODIUM CHLOR 0.9% PF (SALINE LOCK) 10ML VIAL/SYR IV SCH ×3 (06:34→22:12)
[2022-02-02] MEDS: LEVOTHYROXINE SODIUM 112 MCG TAB PO SCH (06:35)
[2022-02-02] MEDS: THIAMINE HCL 100 MG TAB PO SCH (09:47)
[2022-02-02] MEDS: ASPirin 81 mg TAB PO SCH (09:47)
[2022-02-02] MEDS: FOLIC ACID 1 MG TAB PO SCH (09:47)
[2022-02-02] MEDS: FUROSEMIDE 40 MG/4 ML VIAL IV SCH ×2 (09:47→19:19)
[2022-02-02] MEDS: DOXYCYCLINE 100 MG TAB/CAP PO SCH ×2 (09:48→22:21)
[2022-02-02] MEDS: POTASSIUM CHL 20 Meq TABLET PO SCH (09:48)
[2022-02-02] MEDS: ENOXAPARIN SOD 40 MG/0.4 ML SYRINGE SC SCH (09:48)
[2022-02-02] MEDS: MULTIPLE VITAMIN TAB PO SCH (09:48)
[2022-02-02] MEDS: NICOTINE 21MG/24 HR TOPICAL PATCH TD SCH (09:55)
[2022-02-02] MEDS ORDERED: diphenhdrAMINE HCL 25 MG CAP PO ONE (21:30)
[2022-02-02 22:00] VITALS: BP 126/79
[2022-02-02] MEDS ORDERED: ATORVASTATIN 20 MG TAB PO SCH (22:00)
[2022-02-02] MEDS: METOPROLOL TARTRATE 25 MG TAB PO SCH (22:20)
[2022-02-02] MEDS: APIXABAN 5 MG TAB PO SCH (22:21)
[2022-02-03] MEDS: FUROSEMIDE 40 MG/4 ML VIAL IV SCH (04:55)
[2022-02-03] MEDS: SODIUM CHLOR 0.9% PF (SALINE LOCK) 10ML VIAL/SYR IV SCH ×2 (04:55→14:00)
[2022-02-03] MEDS: HYDROcodone-ACET 5/325MG TAB PO PRN (04:56)
[2022-02-03] MEDS: methylPREDNISolone SOD SUCC 40 MG/ML VL IV SCH ×2 (04:56→14:00)
[2022-02-03 05:00] VITALS: BP 161/92
[2022-02-03] MEDS: LEVOTHYROXINE SODIUM 112 MCG TAB PO SCH (06:04)
[2022-02-03 09:00] VITALS: BP 135/76
[2022-02-03] MEDS: THIAMINE HCL 100 MG TAB PO SCH (09:44)
[2022-02-03] MEDS: FOLIC ACID 1 MG TAB PO SCH (09:44)
[2022-02-03] MEDS: APIXABAN 5 MG TAB PO SCH (09:44)
[2022-02-03] MEDS: MULTIPLE VITAMIN TAB PO SCH (09:45)
[2022-02-03] MEDS: DOXYCYCLINE 100 MG TAB/CAP PO SCH (09:45)
[2022-02-03] MEDS: POTASSIUM CHL 20 Meq TABLET PO SCH (09:45)
[2022-02-03] MEDS: NICOTINE 21MG/24 HR TOPICAL PATCH TD SCH (09:45)
[2022-02-03] MEDS: METOPROLOL TARTRATE 25 MG TAB PO SCH (09:46)
[2022-02-03] MEDS ORDERED: PRED20TA2 PO (10:21)
[2022-02-03] MEDS ORDERED: APIX5TAB PO (10:24)
[2022-02-03] MEDS ORDERED: MET25T PO (10:25)
[2022-02-03 12:37] VITALS: BP 151/86
[2022-02-03 13:00] VITALS: BP 115/94
[2022-02-03] MEDS ORDERED: PNEUMOCOCCAL VACC POLYS 25 MCG/0.5 ML VIAL IM ONE (13:45)
== END 2022-02-03 16:24 | disposition home health service (06) | DRG 194 ==
LOC: ER 11:48 → EDBD 11:48 → TELE 18:46 → TELE-WESTW 22:18
PROVIDERS: ADMIT Nurse Practitioner Family; ATTEND Internal Medicine Pulmonary Disease
PROC: 5A09357 Assistance with Respiratory Ventilation, Less than 24 Consecutive Hours, Continuous Positive Airway Pressure (ICD-10-PCS; principal; 2022-01-30)
PROC: 3E02340 Introduction of Influenza Vaccine into Muscle, Percutaneous Approach (ICD-10-PCS; 2022-01-30)
DX: I11.0 Hypertensive heart disease with heart failure (principal); J96.11 Chronic respiratory failure with hypoxia; I73.9 Peripheral vascular disease, unspecified; E88.09 Other disorders of plasma-protein metabolism, not elsewhere classified; E66.2 Morbid (severe) obesity with alveolar hypoventilation; I48.92 Unspecified atrial flutter; K70.30 Alcoholic cirrhosis of liver without ascites; J44.1 Chronic obstructive pulmonary disease with (acute) exacerbation; J96.12 Chronic respiratory failure with hypercapnia; D72.819 Decreased white blood cell count, unspecified; R07.89 Other chest pain; F10.10 Alcohol abuse, uncomplicated; F41.9 Anxiety disorder, unspecified; F32.A Depression, unspecified; K21.9 Gastro-esophageal reflux disease without esophagitis; M19.90 Unspecified osteoarthritis, unspecified site; R53.81 Other malaise; J20.9 Acute bronchitis, unspecified; E03.9 Hypothyroidism, unspecified; Z68.45 Body mass index [BMI] 70 or greater, adult; E78.5 Hyperlipidemia, unspecified; F17.210 Nicotine dependence, cigarettes, uncomplicated; J44.0 Chronic obstructive pulmonary disease with (acute) lower respiratory infection; Z20.822 Contact with and (suspected) exposure to COVID-19; I89.0 Lymphedema, not elsewhere classified; I87.2 Venous insufficiency (chronic) (peripheral); Z80.0 Family history of malignant neoplasm of digestive organs; Z82.49 Family history of ischemic heart disease and other diseases of the circulatory system; Z82.5 Family history of asthma and other chronic lower respiratory diseases; Z83.3 Family history of diabetes mellitus; Z86.16 Personal history of COVID-19; Z87.01 Personal history of pneumonia (recurrent); Z23 Encounter for immunization; I50.33 Acute on chronic diastolic (congestive) heart failure
CPT/HCPCS: 36415; 71045; 71046; 80053; 80061; 80307; 81001; 82306; 82962; 83036; 83690; 83735; 83880; 84443; 84484; 85025; 93005; 93306; 94640; 94660; 96374; 96375; 97163; G0378; J3490

== ENCOUNTER 2022-05-02 17:11 | Inpatient (IN) | payer MEDICAID ==
[~2022-05-02] VITALS: Ht 193 cm; Wt 251.0 kg
[~2022-05-02 17:11] MED LIST changes: -ACET-1158 PO; +ALBU108A5 INH; +APIX5TAB PO; +ATO40T PO; -ECON1CRE6 TOP; +FLU220IH INH; -FURO1TAB33 PO; +FURO40TA4 PO; -GABA100C9 PO; +GABA300C10 PO; +MET25T PO; +POTA10TA32 PO; -POTA10TA51 PO; -PRED10TA PO; +PRED20TA2 PO; -SULI200T5 PO; -[UNRECOGNIZED DRUG - CODE] TOP
[2022-05-02] MEDS ORDERED: FUROSEMIDE 100 MG/10ML VIAL IV ONE (17:45)
[2022-05-02 19:08] LABS: Basophils # (auto) 0.2 10 ^3/uL (0-0.2); Eosinophils # (auto) 0.2 10 ^3/uL (0-0.8); Eosinophils % (auto) 3.7 % (0.0-7.0); Hematocrit 34.6 % (41.0-53.0); Hemoglobin 11.6 g/dL (13.5-17.5); Lymphocytes # (auto) 0.7 10 ^3/uL (0.4-5.4); Mean Corpuscular Hgb Conc. 33.6 g/dL (32.0-36.0); Mean Corpuscular Volume 98.4 fL (80.0-100.0); Monocytes # (auto) 0.3 10 ^3/uL (0-1.3); Monocytes % (auto) 5.9 % (0.0-12.0); Neutrophils # (auto) 3.3 10 ^3/uL (1.6-8.6); Neutrophils % (auto) 70.4 % (37.0-80.0); Red Blood Cells 3.51 10^6/uL (4.5-5.90); Red Cell Distribution Width 18.1 % (11.8-14.3); White Blood Cell 4.7 10^3/uL (4.4-10.8)
[2022-05-02 19:16] LABS: INR 1.14 (0.9-1.15); Partial Thromboplastin Time 26.5 sec (23.6-33.0)
[2022-05-02 19:25] LABS: Calcium 7.7 mg/dL (8.5-10.1); Magnesium 2.3 mg/dL (1.6-2.6); Potassium 3.9 mmol/L (3.5-5.1)
[2022-05-02 19:28] LABS: Bilirubin, Total 0.8 mg/dL (0.2-1.0); Total Protein 7.3 g/dL (6.4-8.2)
[2022-05-02] MEDS ORDERED: levoFLOXacin 500MG 100 ML IV ONE (22:15)
[2022-05-02] MEDS ORDERED: HYDROcodone-ACET 5/325MG TAB PO PRN (23:45)
[2022-05-02] MEDS ORDERED: ONDANSETRON HCL 4 MG/2 ML VIAL IV PRN (23:45)
[2022-05-02] MEDS ORDERED: ACETAMINOPHEN 325 MG TAB PO PRN (23:45)
[2022-05-02] MEDS ORDERED: DEXTROSE (50%) 50ML SYRG IV PRN (23:45)
[2022-05-02] MEDS ORDERED: DOCUSATE SOD 100 MG CAP PO PRN (23:45)
[2022-05-03] MEDS: cefTRIAXone 1GM/50ML D5W 50 ML IV SCH ×2 (01:00→21:22)
[2022-05-03] MEDS ORDERED: NITROGLYCERIN 0.4 MG SL TAB SL PRN (01:15)
[2022-05-03] MEDS ORDERED: MORPHINE SULFATE INJ 2 MG/ml SYRG IV PRN ×2 (01:15→15:30)
[2022-05-03 02:10] VITALS: BP 126/76
[2022-05-03] MEDS: IPRATROPIUM BROM 0.5 MG/2.5ML INH SOL NEB PRN ×2 (02:36→22:04)
[2022-05-03] MEDS: ALBUTEROL SULF 2.5 MG/0.5ML(0.5%) NEB SOLN NEB PRN ×2 (02:37→22:04)
[2022-05-03] MEDS: AZITHROMYCIN 500MG/ 250ML 250 ML IV SCH ×2 (02:45→22:50)
[2022-05-03] MEDS: SODIUM CHLOR 0.9% PF (SALINE LOCK) 10ML VIAL/SYR IV SCH ×3 (06:00→21:34)
[2022-05-03] MEDS: InsuLIN REG 1unit/0.01ml Soln (100units/ml) SC SCH ×4 (07:00→22:34)
[2022-05-03] MEDS: ACCU-CHEK COMFORT CURVE STRIP VI SCH ×4 (07:22→21:34)
[2022-05-03] MEDS: LEVOTHYROXINE SODIUM 112 MCG TAB PO SCH (07:28)
[2022-05-03] MEDS: HEPARIN SODIUM (PORCINE) 5000 UNITS/ML 1ML VIAL SC SCH ×3 (07:28→22:34)
[2022-05-03] MEDS ORDERED: FAMOTIDINE (10MG/ML) 2ML VL IV SCH (10:00)
[2022-05-03] MEDS ORDERED: FUROSEMIDE 40 MG/4 ML VIAL IV SCH (10:00)
[2022-05-03] MEDS: methylPREDNISolone SOD SUCC 40 MG/ML VL IV SCH ×2 (11:02→22:32)
[2022-05-03 11:10] LABS: Basophils # (auto) 0.1 10 ^3/uL (0-0.2); Basophils % (auto) 2.5 % (0.0-2.0); Eosinophils # (auto) 0.1 10 ^3/uL (0-0.8); Eosinophils % (auto) 2.5 % (0.0-7.0); Hematocrit 37.6 % (41.0-53.0); Hemoglobin 12.4 g/dL (13.5-17.5); Lymphocytes # (auto) 0.3 10 ^3/uL (0.4-5.4); Lymphocytes % (auto) 5.5 % (10.0-50.0); Mean Corpuscular Hemoglobin 32.6 pg (28.0-32.0); Mean Corpuscular Hgb Conc. 32.8 g/dL (32.0-36.0); Mean Corpuscular Volume 99.4 fL (80.0-100.0); Monocytes # (auto) 0.2 10 ^3/uL (0-1.3); Monocytes % (auto) 4.3 % (0.0-12.0); Neutrophils # (auto) 4.7 10 ^3/uL (1.6-8.6); Neutrophils % (auto) 85.2 % (37.0-80.0); Nucleated Red Blood Cells % 0.1 %; Red Blood Cells 3.79 10^6/uL (4.5-5.90); Red Cell Distribution Width 18.5 % (11.8-14.3); White Blood Cell 5.5 10^3/uL (4.4-10.8)
[2022-05-03 11:22] LABS: Albumin 3.1 g/dL (3.4-5.0); Calcium 7.9 mg/dL (8.5-10.1); Potassium 3.9 mmol/L (3.5-5.1)
[2022-05-03 11:27] LABS: BUN/Creatinine Ratio 7.6; Bilirubin, Total 1.6 mg/dL (0.2-1.0); Total Protein 7.7 g/dL (6.4-8.2)
[2022-05-03] MEDS: ASPirin 81 mg TAB PO SCH (11:31)
[2022-05-03] MEDS: CARVEDILOL 12.5 MG TAB PO SCH ×2 (11:33→22:32)
[2022-05-03 13:22] VITALS: BP 102/69
[2022-05-03] MEDS ORDERED: ACETAMINOPHEN 325 MG TAB PO PRN (15:30)
[2022-05-03] MEDS ORDERED: ONDANSETRON HCL 4 MG/2 ML VIAL IV PRN ×2 (15:30→18:30)
[2022-05-03] MEDS ORDERED: hydrALAZINE HCL 20 MG/ML VL IV PRN (15:30)
[2022-05-03] MEDS ORDERED: HYDROcodone-ACET 5/325MG TAB PO PRN (15:30)
[2022-05-03 16:24] LABS: Magnesium 2.2 mg/dL (1.6-2.6); Phosphorus 2.9 mg/dL (2.5-4.90)
[2022-05-03 16:48] LABS: INR 1.21 (0.9-1.15); Partial Thromboplastin Time 26.4 sec (23.6-33.0)
[2022-05-03 17:00] VITALS: BP 140/91
[2022-05-03] MEDS ORDERED: LIDOCAINE 1%-Mpf/Epinephrine 1:200,000 ONE (17:16)
[2022-05-03] MEDS ORDERED: LIDOCAINE 1%HCL (LOCAL ANESTH) 10 ML MDV ONE (17:16)
[2022-05-03] MEDS ORDERED: LIDOCAINE 2% JELLY 11ml (GLYDO) ONE (17:45)
[2022-05-03] MEDS ORDERED: ceFAZolin 1GM/50ML 150 ML IV ONE (17:56)
[2022-05-03] MEDS ORDERED: MIDAZOLAM HCL 2MG/2ML 2ml VIAL (1mg/ml) ONE (17:58)
[2022-05-03] MEDS ORDERED: PROPOFOL 10 MG/ML 20 ML IV ONE (18:16)
[2022-05-03] MEDS ORDERED: DexAMETHasone SOD PHOS 10MG/1ML VIAL INJ ONE (18:16)
[2022-05-03] MEDS ORDERED: ePHEDrine SULFATE 50 MG/ML AMP IV PRN (18:30)
[2022-05-03] MEDS ORDERED: LABETALOL HCL 5 MG/ML 4ML SYRINGE IV PRN (18:30)
[2022-05-03] MEDS ORDERED: MIDAZOLAM HCL 2MG/2ML 2ml VIAL (1mg/ml) IV PRN (18:30)
[2022-05-03 22:00] VITALS: BP 126/62
[2022-05-03] MEDS: BUDESONIDE (INHALATION) 0.5 MG/2 ML NEB NEB SCH (22:05)
[2022-05-03] MEDS: FUROSEMIDE 40 MG/4 ML VIAL IV SCH (22:31)
[2022-05-03] MEDS: POTASSIUM CHL 20 Meq TABLET PO SCH (22:33)
[2022-05-04 01:40] LABS: Amphetamine Screen, Urine NEGATIVE (NEGATIVE); Barbiturate Scree,Urine NEGATIVE (NEGATIVE); Benzodiazephine Screen, Urine NEGATIVE (NEGATIVE); Cannabinoid Screen, Urine NEGATIVE (NEGATIVE); Cocaine Screen, Urine NEGATIVE (NEGATIVE); Opiate Scree,Urine NEGATIVE (NEGATIVE); Phencyclidine Screen, Urine NEGATIVE (NEGATIVE); Protein, Urine 8.2 mg/dL (0.0-11.9)
[2022-05-04 01:57] LABS: Alcohol, Urine < 3.0 mg/dL (0-10)
[2022-05-04 02:04] LABS: Urine Bacteria NONE SEEN /hpf (None Seen); Urine Blood 3+ /uL (Negative); Urine Mucus FEW (None Seen); Urine Specific Gravity 1.008 (1.001-1.035); Urine WBC 2 /hpf (0 - 3)
[2022-05-04 04:00] VITALS: BP 114/60
[2022-05-04 05:46] LABS: INR 1.21 (0.9-1.15); Partial Thromboplastin Time 25.7 sec (23.6-33.0)
[2022-05-04 05:52] LABS: Magnesium 2.1 mg/dL (1.6-2.6); Potassium 4.1 mmol/L (3.5-5.1)
[2022-05-04 06:14] LABS: Albumin 2.7 g/dL (3.4-5.0); BUN/Creatinine Ratio 12.7; Bilirubin, Total 0.9 mg/dL (0.2-1.0); CRP High Sensitivity 3.55 mg/dL (< 0.3); Calcium 7.8 mg/dL (8.5-10.1); Total Protein 7.3 g/dL (6.4-8.2); Uric Acid 6.9 mg/dL (3.5-7.2)
[2022-05-04 06:31] LABS: Basophils # (auto) 0 10 ^3/uL (0-0.2); Basophils % (auto) 0.1 % (0.0-2.0); Eosinophils # (auto) 0 10 ^3/uL (0-0.8); Eosinophils % (auto) 0.1 % (0.0-7.0); Hematocrit 36.3 % (41.0-53.0); Hemoglobin 12.1 g/dL (13.5-17.5); Lymphocytes # (auto) 0.3 10 ^3/uL (0.4-5.4); Lymphocytes % (auto) 4.5 % (10.0-50.0); Mean Corpuscular Hemoglobin 32.6 pg (28.0-32.0); Mean Corpuscular Hgb Conc. 33.3 g/dL (32.0-36.0); Mean Corpuscular Volume 97.8 fL (80.0-100.0); Monocytes # (auto) 0.1 10 ^3/uL (0-1.3); Monocytes % (auto) 2.3 % (0.0-12.0); Neutrophils # (auto) 5.5 10 ^3/uL (1.6-8.6); Nucleated Red Blood Cells % 0.1 %; Red Blood Cells 3.71 10^6/uL (4.5-5.90); Red Cell Distribution Width 17.3 % (11.8-14.3)
[2022-05-04] MEDS: SODIUM CHLOR 0.9% PF (SALINE LOCK) 10ML VIAL/SYR IV SCH ×3 (06:32→21:21)
[2022-05-04] MEDS: ACCU-CHEK COMFORT CURVE STRIP VI SCH ×4 (06:32→21:23)
[2022-05-04] MEDS: LEVOTHYROXINE SODIUM 112 MCG TAB PO SCH (06:32)
[2022-05-04] MEDS: InsuLIN REG 1unit/0.01ml Soln (100units/ml) SC SCH ×4 (06:39→22:01)
[2022-05-04] MEDS: HEPARIN SODIUM (PORCINE) 5000 UNITS/ML 1ML VIAL SC SCH ×2 (06:39→14:22)
[2022-05-04] MEDS: ALBUTEROL SULF 2.5 MG/0.5ML(0.5%) NEB SOLN NEB PRN ×2 (07:24→18:38)
[2022-05-04] MEDS: BUDESONIDE (INHALATION) 0.5 MG/2 ML NEB NEB SCH ×2 (07:25→18:38)
[2022-05-04] MEDS: IPRATROPIUM BROM 0.5 MG/2.5ML INH SOL NEB PRN ×2 (07:25→18:38)
[2022-05-04 07:50] VITALS: BP 107/66
[2022-05-04 09:00] VITALS: BP 107/66
[2022-05-04] MEDS: ASPirin 81 mg TAB PO SCH (09:22)
[2022-05-04] MEDS: CARVEDILOL 12.5 MG TAB PO SCH ×2 (09:22→21:22)
[2022-05-04] MEDS: FUROSEMIDE 40 MG/4 ML VIAL IV SCH ×2 (09:22→21:21)
[2022-05-04] MEDS: methylPREDNISolone SOD SUCC 40 MG/ML VL IV SCH (09:22)
[2022-05-04] MEDS: POTASSIUM CHL 20 Meq TABLET PO SCH ×2 (09:23→21:22)
[2022-05-04] MEDS: FAMOTIDINE (10MG/ML) 2ML VL IV SCH (10:00)
[2022-05-04 13:00] VITALS: BP 120/74
[2022-05-04 17:00] VITALS: BP 115/49
[2022-05-04] MEDS: cefTRIAXone 1GM/50ML D5W 50 ML IV SCH (21:20)
[2022-05-04] MEDS: NYSTATIN TOPICAL POWDER 15GM TOP SCH (21:21)
[2022-05-04] MEDS: AZITHROMYCIN 500MG/ 250ML 250 ML IV SCH (21:21)
[2022-05-04] MEDS: APIXABAN 5 MG TAB PO SCH (21:22)
[2022-05-04 22:00] VITALS: BP 112/69
[2022-05-05 05:00] VITALS: BP 105/61
[2022-05-05 06:01] LABS: Potassium 3.9 mmol/L (3.5-5.1)
[2022-05-05] MEDS: LEVOTHYROXINE SODIUM 112 MCG TAB PO SCH (06:01)
[2022-05-05] MEDS: SODIUM CHLOR 0.9% PF (SALINE LOCK) 10ML VIAL/SYR IV SCH ×2 (06:01→16:22)
[2022-05-05] MEDS: InsuLIN REG 1unit/0.01ml Soln (100units/ml) SC SCH ×2 (06:01→11:10)
[2022-05-05] MEDS: ACCU-CHEK COMFORT CURVE STRIP VI SCH ×2 (06:02→11:10)
[2022-05-05 06:05] LABS: BUN/Creatinine Ratio 21.3; Calcium 8.2 mg/dL (8.5-10.1)
[2022-05-05] MEDS: ALBUTEROL SULF 2.5 MG/0.5ML(0.5%) NEB SOLN NEB PRN ×2 (06:42→18:05)
[2022-05-05] MEDS: IPRATROPIUM BROM 0.5 MG/2.5ML INH SOL NEB PRN ×2 (06:43→18:05)
[2022-05-05] MEDS: BUDESONIDE (INHALATION) 0.5 MG/2 ML NEB NEB SCH ×2 (06:43→18:05)
[2022-05-05 07:40] VITALS: BP 129/71
[2022-05-05 09:00] VITALS: BP 129/71
[2022-05-05] MEDS: POTASSIUM CHL 20 Meq TABLET PO SCH (09:00)
[2022-05-05] MEDS: FUROSEMIDE 40 MG/4 ML VIAL IV SCH (09:00)
[2022-05-05] MEDS: NYSTATIN TOPICAL POWDER 15GM TOP SCH (09:00)
[2022-05-05] MEDS: APIXABAN 5 MG TAB PO SCH (09:01)
[2022-05-05] MEDS: FAMOTIDINE (10MG/ML) 2ML VL IV SCH (09:01)
[2022-05-05] MEDS: CARVEDILOL 12.5 MG TAB PO SCH (09:01)
[2022-05-05 13:00] VITALS: BP 112/76
[2022-05-05 13:47] VITALS: BP 112/76
[2022-05-05 17:00] VITALS: BP 118/70
== END 2022-05-05 18:34 | disposition home health service (06) | DRG 194 ==
LOC: ER 17:11 → EDBD 17:11 → EDUNIT# 17:11 → TELE 05-03 01:01 → TELE-WESTW 05-03 13:22
PROVIDERS: ADMIT Nurse Practitioner Family; ATTEND Internal Medicine
PROC: 0T9B80Z Drainage of Bladder with Drainage Device, Via Natural or Artificial Opening Endoscopic (ICD-10-PCS; principal; 2022-05-03 18:01)
DX: I11.0 Hypertensive heart disease with heart failure (principal); J96.10 Chronic respiratory failure, unspecified whether with hypoxia or hypercapnia; I27.9 Pulmonary heart disease, unspecified; E88.09 Other disorders of plasma-protein metabolism, not elsewhere classified; E66.2 Morbid (severe) obesity with alveolar hypoventilation; J44.1 Chronic obstructive pulmonary disease with (acute) exacerbation; E11.51 Type 2 diabetes mellitus with diabetic peripheral angiopathy without gangrene; I50.33 Acute on chronic diastolic (congestive) heart failure; Z20.822 Contact with and (suspected) exposure to COVID-19; I47.1 Supraventricular tachycardia; I87.2 Venous insufficiency (chronic) (peripheral); N50.89 Other specified disorders of the male genital organs; R31.9 Hematuria, unspecified; R33.9 Retention of urine, unspecified; E03.9 Hypothyroidism, unspecified; E78.5 Hyperlipidemia, unspecified; F17.210 Nicotine dependence, cigarettes, uncomplicated; I25.10 Atherosclerotic heart disease of native coronary artery without angina pectoris; D64.9 Anemia, unspecified; I48.91 Unspecified atrial fibrillation; M19.90 Unspecified osteoarthritis, unspecified site; K21.9 Gastro-esophageal reflux disease without esophagitis; R32 Unspecified urinary incontinence; Z68.44 Body mass index [BMI] 60.0-69.9, adult; Z80.0 Family history of malignant neoplasm of digestive organs; Z74.01 Bed confinement status; Z82.49 Family history of ischemic heart disease and other diseases of the circulatory system; Z83.3 Family history of diabetes mellitus; Z82.5 Family history of asthma and other chronic lower respiratory diseases; Z86.16 Personal history of COVID-19; Z87.01 Personal history of pneumonia (recurrent); Q55.64 Hidden penis; Z95.1 Presence of aortocoronary bypass graft; Z71.6 Tobacco abuse counseling; Z79.84 Long term (current) use of oral hypoglycemic drugs
CPT/HCPCS: 36415; 36600; 71045; 76775; 76870; 80048; 80053; 80061; 80307; 81001; 82550; 82728; 82805; 82962; 83036; 83615; 83690; 83735; 83880; 84100; 84156; 84300; 84439; 84443; 84484; 84550; 85025; 85379; 85610; 85652; 85730; 86141; 86850; 86900; 86901; 87040; 87086; 93005; 94640; 96365; 96375; 97163; 99291; G0378; J0690; J0696; J1100; J1815; J1956; J2001; J2250; J2704; J3490

== ENCOUNTER 2022-05-23 16:10 | Inpatient (IN) | payer MEDICAID ==
[~2022-05-23] VITALS: Ht 190.5 cm; Wt 200.0 kg
[2022-05-23] MEDS ORDERED: SODIUM CHLORIDE 0.9% 2,000 ML IV ONE (16:30)
[2022-05-23] MEDS ORDERED: SODIUM CHLORIDE 0.9% 1,000 ML IVB ONE ×2 (16:30→21:00)
[2022-05-23] MEDS ORDERED: ONDANSETRON HCL 4 MG/2 ML VIAL ONE (16:41)
[2022-05-23] MEDS ORDERED: ONDANSETRON HCL 4 MG/2 ML VIAL IV ONE ×3 (16:45→21:00)
[2022-05-23 17:22] LABS: Basophils # (auto) 0.1 10 ^3/uL (0-0.2); Basophils % (auto) 2.1 % (0.0-2.0); Eosinophils # (auto) 0.3 10 ^3/uL (0-0.8); Eosinophils % (auto) 7.1 % (0.0-7.0); Hematocrit 41.2 % (41.0-53.0); Hemoglobin 13.2 g/dL (13.5-17.5); Lymphocytes # (auto) 1.4 10 ^3/uL (0.4-5.4); Mean Corpuscular Hemoglobin 31.8 pg (28.0-32.0); Mean Corpuscular Hgb Conc. 32.1 g/dL (32.0-36.0); Monocytes # (auto) 0.4 10 ^3/uL (0-1.3); Monocytes % (auto) 8.1 % (0.0-12.0); Neutrophils # (auto) 2.6 10 ^3/uL (1.6-8.6); Neutrophils % (auto) 53.7 % (37.0-80.0); Nucleated Red Blood Cells % 0.1 %; Red Blood Cells 4.17 10^6/uL (4.5-5.90); Red Cell Distribution Width 19.1 % (11.8-14.3); White Blood Cell 4.8 10^3/uL (4.4-10.8)
[2022-05-23 17:23] LABS: Albumin 3.4 g/dL (3.4-5.0); Anion Gap 10 (5-15); BUN/Creatinine Ratio 8.7; Blood Urea Nitrogen 6 mg/dL (7-18); Calcium 7.7 mg/dL (8.5-10.1); Carbon Dioxide 25 mmol/L (21-32); Chloride 107 mmol/L (98-107); GFR African American 155 mL/min; GFR Non-African American 128 mL/min; Glucose 114 mg/dL (74-106); Magnesium 2.1 mg/dL (1.6-2.6); Potassium 3.6 mmol/L (3.5-5.1); Sodium 142 mmol/L (136-145)
[2022-05-23 17:26] LABS: Alanine Aminotransferase 16 U/L (16-61); Alkaline Phosphatase 68 U/L (45-117); Aspartate Aminotransferase 17 U/L (15-37); Bilirubin, Total 0.6 mg/dL (0.2-1.0); Total Protein 7.9 g/dL (6.4-8.2)
[2022-05-23 17:38] LABS: Blood Alcohol > 300.0 mg/dL (0-5)
[2022-05-23] MEDS ORDERED: PIPERACILLIN-TAZOB 3.375GM 100 ML IV ONE (19:15)
[2022-05-23] MEDS ORDERED: DexAMETHasone SOD PHOS 10MG/1ML VIAL INJ IV ONE (19:30)
[2022-05-23] MEDS ORDERED: HYDROcodone-ACET 5/325MG TAB PO PRN (21:00)
[2022-05-23] MEDS ORDERED: SODIUM CHLORIDE 0.9% 1,000 ML IV SCH (21:00)
[2022-05-23] MEDS: LORazepam 2MG/ML-1ML VIAL IV SCH ×13 (21:00→23:45)
[2022-05-23] MEDS ORDERED: ONDANSETRON HCL 4 MG/2 ML VIAL IV PRN (21:00)
[2022-05-23] MEDS ORDERED: ACETAMINOPHEN 325 MG TAB PO PRN (21:00)
[2022-05-23] MEDS ORDERED: LORazepam 0.5 MG TAB PO PRN (21:00)
[2022-05-23] MEDS ORDERED: DOCUSATE SOD 100 MG CAP PO PRN (21:00)
[2022-05-23] MEDS ORDERED: MORPHINE SULFATE INJ 2 MG/ml SYRG IV PRN (21:00)
[2022-05-24 00:14] VITALS: BP 138/76
[2022-05-24] MEDS: LORazepam 2MG/ML-1ML VIAL IV SCH ×60 (00:15→12:45)
[2022-05-24 01:16] LABS: Urine Bacteria NONE SEEN /hpf (None Seen); Urine Blood 3+ /uL (Negative); Urine Specific Gravity 1.012 (1.001-1.035); Urine WBC 44 /hpf (0 - 3)
[2022-05-24 01:21] LABS: Amphetamine Screen, Urine NEGATIVE (NEGATIVE); Barbiturate Scree,Urine NEGATIVE (NEGATIVE); Benzodiazephine Screen, Urine NEGATIVE (NEGATIVE); Cannabinoid Screen, Urine NEGATIVE (NEGATIVE); Cocaine Screen, Urine NEGATIVE (NEGATIVE); Opiate Scree,Urine NEGATIVE (NEGATIVE); Phencyclidine Screen, Urine NEGATIVE (NEGATIVE)
[2022-05-24 02:07] VITALS: BP 123/73
[2022-05-24 02:42] VITALS: BP 123/73
[2022-05-24 04:43] LABS: Basophils # (auto) 0 10 ^3/uL (0-0.2); Basophils % (auto) 0.4 % (0.0-2.0); Eosinophils # (auto) 0 10 ^3/uL (0-0.8); Eosinophils % (auto) 0.3 % (0.0-7.0); Hematocrit 39.2 % (41.0-53.0); Hemoglobin 12.9 g/dL (13.5-17.5); Lymphocytes # (auto) 0.3 10 ^3/uL (0.4-5.4); Lymphocytes % (auto) 9.8 % (10.0-50.0); Mean Corpuscular Hemoglobin 32.4 pg (28.0-32.0); Mean Corpuscular Hgb Conc. 32.8 g/dL (32.0-36.0); Mean Corpuscular Volume 98.7 fL (80.0-100.0); Monocytes # (auto) 0 10 ^3/uL (0-1.3); Monocytes % (auto) 1.4 % (0.0-12.0); Neutrophils # (auto) 2.9 10 ^3/uL (1.6-8.6); Neutrophils % (auto) 88.1 % (37.0-80.0); Nucleated Red Blood Cells % 0.1 %; Red Blood Cells 3.97 10^6/uL (4.5-5.90); Red Cell Distribution Width 18.8 % (11.8-14.3); White Blood Cell 3.3 10^3/uL (4.4-10.8)
[2022-05-24 04:47] LABS: Calcium 7.4 mg/dL (8.5-10.1); Potassium 4.4 mmol/L (3.5-5.1)
[2022-05-24 04:50] LABS: BUN/Creatinine Ratio 8.3
[2022-05-24] MEDS ORDERED: THIAMINE 100mg/ml INJ (200mg/2ml VIAL) IV SCH (10:00)
[2022-05-24] MEDS ORDERED: chlordiazePOXIDE HCL 25 MG CAP PO SCH (10:00)
[2022-05-24] MEDS: MULTIPLE VITAMIN TAB PO SCH (10:23)
[2022-05-24] MEDS: FOLIC ACID 1 MG TAB PO SCH (10:23)
[2022-05-24] MEDS: SODIUM CHLORIDE 0.9% 1,000 ML IV SCH ×2 (10:26→19:45)
[2022-05-24] MEDS ORDERED: LORazepam 2MG/ML-1ML VIAL IV PRN ×2 (13:15)
[2022-05-24] MEDS ORDERED: chlordiazePOXIDE HCL 25 MG CAP PO PRN (13:15)
[2022-05-24] MEDS: THIAMINE 100mg/ml INJ (200mg/2ml VIAL) IV SCH (14:59)
[2022-05-25 00:09] VITALS: BP 159/96
[2022-05-25 02:19] VITALS: BP 130/85
[2022-05-25] MEDS: SODIUM CHLORIDE 0.9% 1,000 ML IV SCH ×2 (05:20→16:27)
[2022-05-25] MEDS: cefTRIAXone 1GM/50ML D5W 50 ML IV SCH (09:23)
[2022-05-25] MEDS: ENOXAPARIN SOD 40 MG/0.4 ML SYRINGE SC SCH (10:00)
[2022-05-25] MEDS: PANTOPRAZOLE 40 MG/10 ML VIAL INJ IV SCH (10:01)
[2022-05-25] MEDS: THIAMINE 100mg/ml INJ (200mg/2ml VIAL) IV SCH (10:01)
[2022-05-25] MEDS: FOLIC ACID 1 MG TAB PO SCH (10:01)
[2022-05-25] MEDS: MULTIPLE VITAMIN TAB PO SCH (10:01)
[2022-05-25 10:30] VITALS: BP 146/87
[2022-05-25 13:00] VITALS: BP 133/81
[2022-05-25 17:00] VITALS: BP 119/76
[2022-05-25 22:00] VITALS: BP 139/81
[2022-05-26 05:00] VITALS: BP 139/79
[2022-05-26 05:03] LABS: Basophils # (auto) 0 10 ^3/uL (0-0.2); Basophils % (auto) 1.1 % (0.0-2.0); Eosinophils # (auto) 0.1 10 ^3/uL (0-0.8); Eosinophils % (auto) 2.6 % (0.0-7.0); Hematocrit 36.6 % (41.0-53.0); Hemoglobin 12.2 g/dL (13.5-17.5); Lymphocytes # (auto) 1.3 10 ^3/uL (0.4-5.4); Lymphocytes % (auto) 27.6 % (10.0-50.0); Mean Corpuscular Hemoglobin 32.7 pg (28.0-32.0); Mean Corpuscular Hgb Conc. 33.4 g/dL (32.0-36.0); Mean Corpuscular Volume 97.8 fL (80.0-100.0); Monocytes # (auto) 0.3 10 ^3/uL (0-1.3); Monocytes % (auto) 7.2 % (0.0-12.0); Neutrophils # (auto) 2.8 10 ^3/uL (1.6-8.6); Neutrophils % (auto) 61.5 % (37.0-80.0); Nucleated Red Blood Cells % 0.2 %; Red Blood Cells 3.74 10^6/uL (4.5-5.90); Red Cell Distribution Width 18.6 % (11.8-14.3); White Blood Cell 4.6 10^3/uL (4.4-10.8)
[2022-05-26] MEDS: SODIUM CHLORIDE 0.9% 1,000 ML IV SCH (05:10)
[2022-05-26 05:22] LABS: Calcium 8.4 mg/dL (8.5-10.1); Potassium 4.1 mmol/L (3.5-5.1)
[2022-05-26 05:25] LABS: BUN/Creatinine Ratio 21.9
[2022-05-26 08:00] VITALS: BP 115/81
[2022-05-26 09:21] VITALS: BP 115/81
[2022-05-26] MEDS: FOLIC ACID 1 MG TAB PO SCH (09:22)
[2022-05-26] MEDS: ENOXAPARIN SOD 40 MG/0.4 ML SYRINGE SC SCH (09:22)
[2022-05-26] MEDS: cefTRIAXone 1GM/50ML D5W 50 ML IV SCH (09:22)
[2022-05-26] MEDS: MULTIPLE VITAMIN TAB PO SCH (09:22)
[2022-05-26] MEDS: THIAMINE 100mg/ml INJ (200mg/2ml VIAL) IV SCH (09:26)
[2022-05-26] MEDS: PANTOPRAZOLE 40 MG/10 ML VIAL INJ IV SCH (09:29)
[2022-05-26] MEDS ORDERED: LEVO750T64 PO (09:43)
[2022-05-26 13:20] VITALS: BP 128/84
== END 2022-05-26 19:23 | disposition home or self-care (01) | DRG 52 ==
LOC: EDBD 16:10 → ER 16:10 → OVERFLOW 20:53 → TELE-CENTR 05-25 10:21
PROVIDERS: ADMIT Hospitalist; ATTEND Internal Medicine Pulmonary Disease
PROC: 5A09357 Assistance with Respiratory Ventilation, Less than 24 Consecutive Hours, Continuous Positive Airway Pressure (ICD-10-PCS; principal; 2022-05-24)
PROC: 5A09357 Assistance with Respiratory Ventilation, Less than 24 Consecutive Hours, Continuous Positive Airway Pressure (ICD-10-PCS; 2022-05-25)
PROC: 5A09357 Assistance with Respiratory Ventilation, Less than 24 Consecutive Hours, Continuous Positive Airway Pressure (ICD-10-PCS; 2022-05-26)
DX: G92.8 Other toxic encephalopathy (principal); J96.21 Acute and chronic respiratory failure with hypoxia; I50.9 Heart failure, unspecified; I11.0 Hypertensive heart disease with heart failure; E86.0 Dehydration; Z68.44 Body mass index [BMI] 60.0-69.9, adult; R59.1 Generalized enlarged lymph nodes; F10.129 Alcohol abuse with intoxication, unspecified; Y90.8 Blood alcohol level of 240 mg/100 ml or more; N39.0 Urinary tract infection, site not specified; R33.9 Retention of urine, unspecified; Z20.822 Contact with and (suspected) exposure to COVID-19; E78.5 Hyperlipidemia, unspecified; E11.9 Type 2 diabetes mellitus without complications; K21.9 Gastro-esophageal reflux disease without esophagitis; F32.A Depression, unspecified; E66.01 Morbid (severe) obesity due to excess calories; R31.0 Gross hematuria; F10.139 Alcohol abuse with withdrawal, unspecified; Q55.64 Hidden penis; Z79.4 Long term (current) use of insulin
CPT/HCPCS: 36415; 36600; 71045; 80048; 80053; 80061; 80307; 80320; 81001; 82728; 82805; 83735; 83880; 84484; 85025; 86141; 87086; 87088; 87186; 93005; 94660; 96361; 96365; 96375; 99291; C9113; G0378; J0696; J1100; J2405; J2543